=== PATIENT | male | born 1935 | race Caucasian/White ===

== ENCOUNTER 2016-05-01 12:19 | Outpatient (CLI) | payer OTHER, MEDICARE | END 2016-05-01 18:56 | disposition home or self-care (01) | LOC: SUS 12:19 | PROVIDERS: ATTEND General Practice | DX: I65.21 Occlusion and stenosis of right carotid artery (principal); R42 Dizziness and giddiness; R55 Syncope and collapse | CPT/HCPCS: 93880 ==

== ENCOUNTER 2016-10-20 14:12 | Emergency (ER) | payer OTHER, MEDICARE ==
[~2016-10-20] VITALS: Ht 172.7 cm; Wt 84.4 kg
[2016-10-20 14:15] VITALS: BP_SYST 116
[2016-10-20 16:32] VITALS: BP_SYST 120
== END 2016-10-20 16:31 | disposition home or self-care (01) ==
LOC: CANPREER → EDSTATUS 14:12 → SED 14:22
DX: M25.551 Pain in right hip (principal); Z88.1 Allergy status to other antibiotic agents; W01.190A Fall on same level from slipping, tripping and stumbling with subsequent striking against furniture, initial encounter; Y93.89 Activity, other specified; Y92.89 Other specified places as the place of occurrence of the external cause; Y99.8 Other external cause status
CPT/HCPCS: 73502; 99284

== ENCOUNTER 2017-04-23 13:07 | Outpatient (CLI) | payer OTHER, MEDICARE | END 2017-04-23 19:46 | disposition home or self-care (01) | LOC: SRD 13:07 | PROVIDERS: ATTEND General Practice | DX: R05 Cough (principal) | CPT/HCPCS: 71046-TC ==

== ENCOUNTER 2017-09-18 15:37 | Emergency (ER) | payer OTHER, MEDICARE ==
[~2017-09-18] VITALS: Ht 172.7 cm; Wt 80.7 kg
[2017-09-18 15:40] VITALS: BP_SYST 110
--- NOTE | 2017-09-18 15:40 | NUR ---
Patient to ER bed 6 to gown for evaluation. Side rails up. [facility]
--- NOTE | 2017-09-18 15:50 | NUR ---
Patient to ER via [facility] for evaluation of laceration to back of his head,s/p non-syncopal slip and fall on some water. Patient denies LOC, denies neck/back pain. Patient denies any pain at present. Patient is awake,alert and oriented in no acute distress, vital signs stable, respirations even and unlabored, skin warmand dry to touch. Awaiting evaluation by ER MD, will continue to observe and assess.
--- NOTE | 2017-09-18 16:00 | NUR ---
Lab at bedside to [facility] blood specimens.
--- NOTE | 2017-09-18 16:13 | NUR ---
Patient to radiology for x-ray/CT scan in stable condition.
--- NOTE | 2017-09-18 16:30 | NUR ---
Patient returned from radiology via [facility] in stable condition.
--- NOTE | 2017-09-18 16:35 | NUR ---
Dr Todd at bedside to evaluate patient.
[2017-09-18 16:36] LABS: ANION GAP 8 (5-15); CALCIUM 8.6 mg/dL (8.4-11.0); CHLORIDE 106 mmol/L (98-107); CREATININE 1.26 mg/dL (0.55-1.30); GLUCOSE 136 mg/dL (70-99); POTASSIUM 4.3 mmol/L (3.5-5.1); PROTHROMBIN TIME 10.1 SECS (9.5-12.5); SODIUM SERUM 140 mmol/L (136-145); UREA NITROGEN, BLOOD 33 mg/dL (8-21)
--- NOTE | 2017-09-18 16:40 | NUR ---
Wound care to wound to posterior scalp, wounds cleansed with hydrogen perioxide.
[2017-09-18 16:41] LABS: BASOPHILS % (AUTO) 0.3 % (0.0-2.0); EOSINOPHILS # (AUTO) 0.4 K/uL (0.0-0.4); EOSINOPHILS % (AUTO) 5.9 % (0.0-4.0); HEMATOCRIT 37.7 % (36-54); HEMOGLOBIN 12.9 g/dL (14.0-18.0); LYMPHOCYTES # (AUTO) 1.6 K/uL (1.0-5.5); LYMPHOCYTES % (AUTO) 22.9 % (20.5-51.5); MEAN CORPUSCULAR HEMOGLOBIN 33 pg (27-31); MEAN CORPUSCULAR HGB CONC 34 % (32-36); MEAN CORPUSCULAR VOLUME 95 fL (79.0-98.0); MONOCYTES # (AUTO) 0.6 K/uL (0.0-1.0); NEUTROPHILS # (AUTO) 4.3 K/uL (1.8-7.7); NEUTROPHILS % (AUTO) 62.9 % (40.0-70.0); PLATELET COUNT (AUTO) 288 K/uL (130-430); RED BLOOD CELL COUNT(AUTO) 3.96 MIL/uL (4.2-6.2); RED CELL DISTRIBUTION WIDTH 13.4 % (9.0-15.0); WHITE BLOOD COUNT (AUTO) 6.9 K/uL (4.8-10.8)
[2017-09-18 16:52] LABS: ALANINE AMINOTRANSFERASE 11 U/L (12-78); ALBUMIN 3.3 g/dL (3.4-4.8); ASPARTATE AMINOTRANSFERASE 19 U/L (10-37); FREE T4 (FREE THYROXINE) 0.8 ng/dL (0.6-1.6); TOTAL BILIRUBIN 0.6 mg/dL (0.0-1.0)
[2017-09-18 16:53] LABS: ALCOHOL, BLOOD < 3 mg/dL (<10)
--- NOTE | 2017-09-18 17:10 | NUR ---
Patient resting quietly in no acute distress, patient waiting for lab results and dispo.
[2017-09-18 17:20] VITALS: BP_SYST 120
--- NOTE | 2017-09-18 17:20 | NUR ---
Patient given written and verbal discharge instructions and verbalizes understanding. ER MD discussed with patient the results and treatment provided. Patient in stable condition. ID arm band removed. No RX given. Patient educated on pain management and to follow up with PMD. Pain Scale 0. Opportunity for questions provided and answered. Patient left ER in no acute distress via wheelchair, patient brought to private auto via wheelchair and assisted into car without incident. Family to dirve patient back to [facility].
== END 2017-09-18 17:20 | disposition home or self-care (01) ==
LOC: SED 15:37
DX: S09.90XA Unspecified injury of head, initial encounter (principal); G20 Parkinson's disease; Z88.1 Allergy status to other antibiotic agents; W01.0XXA Fall on same level from slipping, tripping and stumbling without subsequent striking against object, initial encounter; Y93.89 Activity, other specified; Y92.091 Bathroom in other non-institutional residence as the place of occurrence of the external cause; Y99.8 Other external cause status; R94.31 Abnormal electrocardiogram [ECG] [EKG]
CPT/HCPCS: 36415; 70450; 71045; 80053; 83605; 83880; 84439; 84484; 85025; 85610; 87040; 93005; 99285; G0482

== ENCOUNTER 2018-03-11 20:11 | Emergency (ER) | payer OTHER, MEDICARE ==
[~2018-03-11] VITALS: Ht 170.2 cm; Wt 80.3 kg
[2018-03-11 20:11] VITALS: BP_SYST 166
[2018-03-11] MEDS ORDERED: DIPH-TET-PERTUS Vaccine 0.5 ML VIAL (ADACEL) I.M. ONE (20:45)
[2018-03-11] MEDS ORDERED: CYAN100010 PO (20:54)
[2018-03-11] MEDS ORDERED: FINA5TAB3 PO (20:54)
[2018-03-11] MEDS ORDERED: PSYL660P17 PO (20:55)
[2018-03-11] MEDS ORDERED: TAMS0.4C96 PO (20:56)
[2018-03-11] MEDS ORDERED: COM200 PO (20:56)
[2018-03-11] MEDS ORDERED: DOCU-144 PO (20:57)
[2018-03-11] MEDS ORDERED: L.RH1CAP PO (21:00)
[2018-03-11] MEDS ORDERED: CARB1TAB21 PO (21:00)
[2018-03-11] MEDS ORDERED: ESCI20TA PO (21:01)
[2018-03-11] MEDS ORDERED: MIDO5TAB PO (21:02)
[2018-03-11] MEDS ORDERED: TRAM50TA2 PO (21:03)
[2018-03-11] MEDS ORDERED: MECL-110 PO (21:31)
[2018-03-11] MEDS ORDERED: CELE200C PO (21:35)
[2018-03-11] MEDS ORDERED: [UNRECOGNIZED DRUG - CODE] PO (21:42)
[2018-03-11] MEDS ORDERED: [UNRECOGNIZED DRUG - CODE] MC (21:42)
[2018-03-11] MEDS ORDERED: LYSI100013 PO (21:43)
[2018-03-11] MEDS ORDERED: ANTI1CAP2 PO (21:44)
[2018-03-11] MEDS ORDERED: CLINDAMYCIN HCL 150 MG CAPSULE PO ONE (22:00)
[2018-03-11 22:16] VITALS: BP_SYST 148
== END 2018-03-11 22:16 | disposition home or self-care (01) ==
LOC: SED 20:11
DX: S01.81XA Laceration without foreign body of other part of head, initial encounter (principal); R03.0 Elevated blood-pressure reading, without diagnosis of hypertension; G20 Parkinson's disease; Z88.1 Allergy status to other antibiotic agents; Z88.2 Allergy status to sulfonamides; Z79.899 Other long term (current) drug therapy; W22.8XXA Striking against or struck by other objects, initial encounter; Y93.89 Activity, other specified; Y92.89 Other specified places as the place of occurrence of the external cause; Y99.8 Other external cause status
CPT/HCPCS: 70450-TC; 70486-TC; 72125-TC; 90715; 93005; 99284

== ENCOUNTER 2018-07-11 12:57 | Emergency (ER) | payer OTHER, MEDICARE ==
[~2018-07-11] VITALS: Ht 172.7 cm; Wt 77.1 kg
[~2018-07-11 12:57] MED LIST: ANTI1CAP2 PO; CARB1TAB21 PO; CELE200C PO; COM200 PO; CYAN100010 PO; DOCU-144 PO; ESCI20TA PO; FINA5TAB3 PO; L.RH1CAP PO; LYSI100013 PO; MECL-110 PO; MIDO5TAB PO; PSYL660P17 PO; TAMS0.4C96 PO; TRAM50TA2 PO; [UNRECOGNIZED DRUG - CODE] PO
[2018-07-11 13:16] VITALS: BP_SYST 107
[2018-07-11 15:31] VITALS: BP_SYST 140
== END 2018-07-11 15:31 | disposition home or self-care (01) ==
LOC: SED 12:57
DX: S00.83XA Contusion of other part of head, initial encounter (principal); G20 Parkinson's disease; Z79.899 Other long term (current) drug therapy; Z88.1 Allergy status to other antibiotic agents; Z88.2 Allergy status to sulfonamides; W01.0XXA Fall on same level from slipping, tripping and stumbling without subsequent striking against object, initial encounter; Y93.89 Activity, other specified; Y92.89 Other specified places as the place of occurrence of the external cause; Y99.8 Other external cause status
CPT/HCPCS: 70450-TC; 99284

== ENCOUNTER 2018-07-20 15:24 | Inpatient (IN) | payer OTHER, MEDICARE ==
[~2018-07-20] VITALS: Ht 180.3 cm; Wt 73.9 kg
--- NOTE | 2018-07-20 15:30 | NUR ---
Cidny caldera in [facility] - 07/20/18 at 1618 by [email or web address] Placed in room 07 . Placed on amusement machine mechanic, blood pressure machine and pulse oximeter. To gown for exam. Side rails up.
[2018-07-20 15:40] VITALS: BP_SYST 111
[2018-07-20] MEDS ORDERED: ALBUTEROL SULFATE 0.083% 2.5 MG/3 ML VIAL.NEB INH ONE ×3 (16:00→17:45)
[2018-07-20] MEDS ORDERED: LEVOFLOXACIN 500 MG/D5W 100 ML IV ONE (16:00)
--- NOTE | 2018-07-20 16:05 | NUR ---
Patient to ER via triage from [facility] for evaluation of SOB, patient denies pain at present. Patient is awake and alert. Patient placed on youth nutritional monitor, low oxygen saturation. Patient placed on oxygen. IV started with #18 to right AC, bloods drawn and sent to lab. EKG being done. Awaiting evaluation by ER MD, will continue to observe and assess.
--- NOTE | 2018-07-20 16:05 | NUR ---
Placed in room 07 . Placed on souvenir street vendor, blood pressure machine and pulse oximeter. To gown for exam. Side rails up.
--- NOTE | 2018-07-20 16:10 | NUR ---
ER at bedside examining patient.
[2018-07-20 16:27] LABS: BASOPHILS % (AUTO) 0.3 % (0.0-2.0); EOSINOPHILS # (AUTO) 0.4 K/uL (0.0-0.4); HEMATOCRIT 34.8 % (36-54); HEMOGLOBIN 11.6 g/dL (14.0-18.0); LYMPHOCYTES # (AUTO) 0.7 K/uL (1.0-5.5); LYMPHOCYTES % (AUTO) 7.5 % (20.5-51.5); MEAN CORPUSCULAR HEMOGLOBIN 32 pg (27-31); MEAN CORPUSCULAR HGB CONC 33 % (32-36); MEAN CORPUSCULAR VOLUME 96 fL (79.0-98.0); MONOCYTES # (AUTO) 0.6 K/uL (0.0-1.0); MONOCYTES % (AUTO) 5.8 % (1.7-9.3); NEUTROPHILS # (AUTO) 7.8 K/uL (1.8-7.7); NEUTROPHILS % (AUTO) 82.4 % (40.0-70.0); PLATELET COUNT (AUTO) 292 K/uL (130-430); RED BLOOD CELL COUNT(AUTO) 3.63 MIL/uL (4.2-6.2); RED CELL DISTRIBUTION WIDTH 15.2 % (9.0-15.0); WHITE BLOOD COUNT (AUTO) 9.5 K/uL (4.8-10.8)
--- NOTE | 2018-07-20 17:00 | NUR ---
Patient resting quietly in no acute distress.
[2018-07-20 17:02] LABS: ANION GAP 8 (5-15); CALCIUM 8.5 mg/dL (8.4-11.0); CHLORIDE 102 mmol/L (98-107); CREATININE 1.06 mg/dL (0.55-1.30); GLUCOSE 104 mg/dL (70-99); POTASSIUM 4.6 mmol/L (3.5-5.1); SODIUM SERUM 136 mmol/L (136-145); UREA NITROGEN, BLOOD 37 mg/dL (8-21)
[2018-07-20 17:07] LABS: ALANINE AMINOTRANSFERASE 13 U/L (12-78); ALBUMIN 3.4 g/dL (3.4-4.8); ASPARTATE AMINOTRANSFERASE 24 U/L (10-37); TOTAL BILIRUBIN 0.7 mg/dL (0.0-1.0)
[2018-07-20 17:18] LABS: PROTHROMBIN TIME 10.1 SECS (9.5-12.5)
[2018-07-20] MEDS ORDERED: CAT.1 PO (17:21)
[2018-07-20] MEDS ORDERED: CARB-62 PO (17:21)
[2018-07-20] MEDS ORDERED: LOT1%CR30 TP (17:21)
[2018-07-20] MEDS ORDERED: [UNRECOGNIZED DRUG - CODE] IJ (17:21)
[2018-07-20] MEDS ORDERED: MOMETASONE TP (17:21)
--- NOTE | 2018-07-20 17:21 | NUR ---
Medication reconciliation completed with information provided by [facility]. Any prior medication reconciliation on file was reviewed and corrected.
--- NOTE | 2018-07-20 17:35 | NUR ---
Patient with increased respiratory difficulty and audible wheezing noted. Dr Todd at bedside to re-evaluate patient. Orders for additional breathing treatments, Solu-Medrol, and magnesium given and implemented.
[2018-07-20] MEDS ORDERED: methylPREDNISolone SOD SUCC/PF 62.5 MG/ML VIAL IVP ONE (17:45)
[2018-07-20] MEDS ORDERED: MAGNESIUM SULFATE IN WATER 100 ML IV ONE (17:45)
[2018-07-20] MEDS ORDERED: KETOROLAC TROMETHAMINE 30 MG VIAL IVP ONE (17:45)
--- NOTE | 2018-07-20 17:45 | NUR ---
Per caregiver, patient is a DNR. Dr Todd is aware. Patient placed on NRB mask.
[2018-07-20] MEDS ORDERED: MAGNESIUM SULFATE 100 ML IV ONE (17:50)
[2018-07-20] MEDS ORDERED: ONDANSETRON HCL 4 MG/2 ML VIAL IVP PRN (18:30)
--- NOTE | 2018-07-20 18:30 | NUR ---
Transfer to tele room 105-A via ACLS protocol. Licensed nurse present. IV present no signs or symptoms of infiltration.
--- NOTE | 2018-07-20 18:30 | NUR ---
Patient will be admitted to care of DR Figueroa. Admitted to tele unit. Will go to room 105-A. Belongings list completed. Summary report printed. Report will be given at bedside.
--- NOTE | 2018-07-20 18:50 | NUR ---
ADMISSION NOTE PATIENT CAME FROM ER, DIAGNOSIS OF COPD EXAC, ON 100% NRB, PT IS DNR, CONFUSED, RESTLESS.
[2018-07-20] MEDS ORDERED: cloNIDine HCL 0.1 MG TABLET PO PRN (19:15)
--- NOTE | 2018-07-20 19:32 | NUR ---
CALL LAURA WINTER a[facility] [phone].INFORM THAT PT IS ON RESTRAIN.
[2018-07-20 20:17] VITALS: BP_SYST 123
--- NOTE | 2018-07-20 20:30 | NUR ---
INITIAL NOTE / BEHAVIOR AT INITIAL ASSESSMENT, PATIENT IS RESTLESS, HIS OXYGEN SATURATION LEVEL IS WNL WITH NON-REBREATHER MASK PLACED AT 15L- WILL START TITRATING DOWN OXYGEN TOLERATED. PATIENT VERBALIZES NO PAIN. PLAN OF CARE FOR THE EVENING IS COMMUNICATED WITH THE PATIENT. BED IS LOCKED, ALARMED, AND AT THE LOWEST LEVEL. FALL, SAFETY, AND RESTRAINT PRECAUTIONS WILL BE IN PLACE THROUGHOUT THE SHIFT. PATIENT IS COMBATIVE, HE IS TRYING TO KICK, PUNCH AND "HEADBUTT" STAFF MD WILL BE PAGED FOR ORDER REQUESTS.
--- NOTE | 2018-07-20 20:30 | NUR ---
CONSULTATION PAGED/CALLED Reason for Consultation: COPD Person Who was Notified: ABDULLAHI Consulting Physician: DYLAN Manager Creative Services Specialty: PULMO Ordering Physician: ARTURO
--- NOTE | 2018-07-20 20:36 | NUR ---
PAGED PAGING THE GRAPHIC COORDINATOR PHYSICIAN, DR. KODAK MORRIS REGARDING ORDERS, SPOKE WITH
[2018-07-20] MEDS: COMTAN 200 MG TAB PO SCH (21:00)
[2018-07-20] MEDS ORDERED: CLOTRIMAZOLE 1% TOPICAL CREAM 15 GM TP SCH (21:00)
--- NOTE | 2018-07-20 21:15 | NUR ---
COMMUNICATION W/ DR. ARTURO MORRIS HAS PAGED BACK AT THIS TIME, PATIENTS BEHAVIOR WAS COMMUNICATED. PATIENT'S GENERALIZED SKIN RASH ALSO COMMUNICATED. NEW ORDERS RECEIVED. ORDERS ARE READ BACK, VERIFIED, AND ENTERED.
[2018-07-20] MEDS: methylPREDNISolone SOD SUCC 40 MG/ML VIAL IVP SCH (21:29)
[2018-07-20] MEDS: DOCUSATE SODIUM 100 MG CAPSULE PO SCH (21:29)
[2018-07-20] MEDS: ACETAMINOPHEN 325 MG TABLET PO PRN (21:29)
[2018-07-20] MEDS: MIDODRINE HCL 5 MG TABLET (PROAMATINE) PO SCH (21:29)
[2018-07-20] MEDS ORDERED: DIPHENHYDRAMINE INJ 50 MG/ML VIAL IVP ONE (22:15)
--- NOTE | 2018-07-20 22:55 | NUR ---
NOTE PATIENT IS SLEEPING, STABLE, NO SIGNS OF RESPIRATORY DISTRESS. HIS OXYGEN SATURATION IS STABLE WITH SIMPLE MASK AT 4L BED IS LOCKED, ALARMED, AND THE LOWEST LEVEL.
--- NOTE | 2018-07-20 23:15 | NUR ---
NOTE PATIENT IS SLEEPING, STABLE, NO SIGNS OF RESPIRATORY DISTRESS. BED IS LOCKED, ALARMED, AND THE LOWEST LEVEL.
--- NOTE | 2018-07-21 01:15 | NUR ---
NOTE PATIENT IS SLEEPING, STABLE, NO SIGNS OF RESPIRATORY DISTRESS. BED IS LOCKED, ALARMED, AND THE LOWEST LEVEL.
--- NOTE | 2018-07-21 03:15 | NUR ---
NOTE PATIENT IS SLEEPING, STABLE, NO SIGNS OF RESPIRATORY DISTRESS. BED IS LOCKED, ALARMED, AND THE LOWEST LEVEL.
--- NOTE | 2018-07-21 05:00 | NUR ---
NOTE PATIENT IS SLEEPING, STABLE, NO SIGNS OF RESPIRATORY DISTRESS. BED IS LOCKED, ALARMED, AND THE LOWEST LEVEL.
--- NOTE | 2018-07-21 06:49 | NUR ---
Nutrition Update Adeel Scale 14 noted. Pt admitted for COPD exacerbation Diet: 2gm Na BMI: 23.7 kg/m2 RD to follow per nutrition care standards.
--- NOTE | 2018-07-21 06:55 | NUR ---
CLOSING NOTE PATIENT IS SLEEPING, STABLE, NO SIGNS OF RESPIRATORY DISTRESS. PATIENT SLEPT WELL THROUGHOUT THE SHIFT. BED IS LOCKED, ALARMED, AND THE LOWEST LEVEL. FALL, SAFETY, AND RESTRAINT PRECAUTIONS HAVE BEEN TAKEN THROUGHOUT THE SHIFT. WILL CONTINUE TO MONITOR UNTIL SHIFT REPORT IS GIVEN AT BEDSIDE TO AM NURSE.
[2018-07-21 07:58] VITALS: BP_SYST 125
--- NOTE | 2018-07-21 08:00 | NUR ---
OPENING NOTES, SEEN PT IN BED, PT IS LETHARGIC, AROUSABLE TO TOUCH. TACHYEPNEIC, NO SOB, NO S/S OF RESP DISTRESS. CRACKLES NOTED ON BILAT LUNGS. ON O2 6LI PER SIMPLE MASK WITH O2 SAT OF 995, REDUCED O2 TO 1 LI PER MASK. WILL CHECK O2 SAT. SAFETY PRECAUTION IN PLACE. CALL LIGHT IN REACH. BED IN LOW POSITION. BED ALARM ON. WILL CONT TO MONITOR.
--- NOTE | 2018-07-21 08:20 | NUR ---
pt's spouse at bedside, updated with pt's condition. spouse confirmed that pt has 2x brain stimulator on the l/r chest also said that rashes is from blood infected per pt's doctor.
[2018-07-21] MEDS: ACETAMINOPHEN 325 MG TABLET PO PRN ×2 (08:58→22:21)
[2018-07-21] MEDS: CARBIDOPA/LEVODOPA 25/250 MG TABLET PO SCH ×5 (08:58→22:01)
[2018-07-21] MEDS: COMTAN 200 MG TAB PO SCH ×4 (08:59→21:00)
[2018-07-21] MEDS: DOCUSATE SODIUM 100 MG CAPSULE PO SCH ×2 (08:59→21:59)
[2018-07-21] MEDS: FINASTERIDE 5 MG TABLET (PROSCAR) PO SCH (09:00)
[2018-07-21] MEDS: CYANOCOBALAMIN 1000 mCg TABLET PO SCH (09:00)
[2018-07-21] MEDS ORDERED: methylPREDNISolone SOD SUCC 40 MG/ML VIAL IVP SCH (09:00)
[2018-07-21] MEDS: MIDODRINE HCL 5 MG TABLET (PROAMATINE) PO SCH ×3 (09:00→22:00)
[2018-07-21] MEDS: ENOXAPARIN SODIUM 40 MG/0.4 ML SYRINGE SUBCUT SCH (09:00)
[2018-07-21] MEDS: methylPREDNISolone SOD SUCC 40 MG/ML VIAL IVP SCH ×2 (09:02→21:59)
[2018-07-21] MEDS: HYDROCORTISONE 1%, 28.35 GM TOPICAL CREAM TP SCH ×2 (09:02→22:04)
--- NOTE | 2018-07-21 10:40 | NUR ---
PT IN BED, PT CONTINUED TO BE ON RESTRAINT, NO SOB, TACHYPNEIC, O2 SAT ON RA IS 94%. SAFETY PRECAUTION IN PLACE. BED ALARM ON . WILL CONT TO MONITOR.
[2018-07-21 11:32] VITALS: BP_SYST 124
[2018-07-21 16:03] VITALS: BP_SYST 122
--- NOTE | 2018-07-21 18:20 | NUR ---
CLOSING NOTES, PT HAS BEEN STABLE, NO FEVER. TURNED AND REPOSITIONED Q2H, PT KEPT ON RESTRAINT, EVEN THOUGH PT IS QUIET AND COOPERATIVE, CHECKING FOR SUNDOWNER'S SYNDROME. PT HAS BEEN AFEBRILE. ALL MEDS OFFERED AND TAKEN. WILL ENDORSE TO NIGHT RN.
[2018-07-21] MEDS: cefTRIAXone 1 GM in D5W 50 ML IV SCH (19:00)
[2018-07-21 19:49] VITALS: BP_SYST 119
--- NOTE | 2018-07-21 19:49 | NUR ---
INITIAL NOTE AT INITIAL ASSESSMENT, PATIENT IS RESTING IN BED, STABLE, NO SIGNS OF RESPIRATORY DISTRESS. PATIENT VERBALIZES NO PAIN. PLAN OF CARE FOR THE EVENING IS COMMUNICATED WITH THE PATIENT. BED IS LOCKED, ALARMED, AND AT THE LOWEST LEVEL. FALL, SAFETY, AND RESTRAINT PRECAUTIONS WILL BE IN PLACE THROUGHOUT THE SHIFT.
[2018-07-21] MEDS: AZITHROMYCIN 500 MG in NS 250 ML IV SCH (20:00)
[2018-07-21] MEDS ORDERED: AZITHROMYCIN 500 MG/VIAL (ZITHROMAX) IV ONE (21:02)
[2018-07-21] MEDS ORDERED: cefTRIAXone 1 GM IVPB PREMIX 50 ML IV ONE (21:02)
--- NOTE | 2018-07-21 21:48 | NUR ---
NOTE PATIENT TOLERATED SCHEDULED PO MEDS WELL. PATIENT IS RESTING IN BED, STABLE, NO SIGNS OF RESPIRATORY DISTRESS. CALL LIGHT IS WITHIN REACH. BED IS LOCKED, ALARMED, AND AT THE LOWEST LEVEL.
--- NOTE | 2018-07-21 23:00 | NUR ---
RESTRAINT D/C BILATERAL WRIST RESTRAINTS ARE D/C AT THIS TIME. PATIENT HAS BEEN QUIET AND CALM EVEN DURING RESTRAINT RELEASE TIMES. WILL MONITOR CLOSELY FOR PATIENT SAFETY. ROUNDS WILL BE PERFORMED AT LEAST Q30 MINUTES THROUGHOUT THE REST OF THE SHIFT TO MONITOR FOR BEHAVIORAL CHANGES. PATIENT'S BED IS LOCKED, ALARMED, AND AT THE LOWEST LEVEL. PATIENT ROOM IS CLOSE TO NURSING STATION FOR CLOSE OBSERVATION. AT THIS TIME HE IS STABLE, NO SIGNS OF RESPIRATORY DISTRESS.
[2018-07-21 23:42] VITALS: BP_SYST 113
--- NOTE | 2018-07-21 23:44 | NUR ---
HYGIENE NOTE PATIENT IS PROVIDED HYGIENE CARE AT THIS TIME, PATIENT PROVIDED FRESH LINENS AND REPOSITIONED FOR COMFORT. HE IS STABLE, NO SIGNS OF RESPIRATORY DISTRESS. CALL LIGHT IS WITHIN REACH. BED IS LOCKED, ALARMED, AND AT THE LOWEST LEVEL.
--- NOTE | 2018-07-22 01:40 | NUR ---
NOTE PATIENT IS SLEEPING, STABLE, NO SIGNS OF RESPIRATORY DISTRESS. BED IS LOCKED, ALARMED, AND AT THE LOWEST LEVEL.
--- NOTE | 2018-07-22 03:30 | NUR ---
NOTE PATIENT IS SLEEPING, STABLE, NO SIGNS OF RESPIRATORY DISTRESS. BED IS LOCKED, ALARMED, AND AT THE LOWEST LEVEL.
[2018-07-22] MEDS: CARBIDOPA/LEVODOPA 25/250 MG TABLET PO SCH ×5 (04:58→22:19)
--- NOTE | 2018-07-22 05:01 | NUR ---
HYGIENE NOTE PATIENT IS PROVIDED HYGIENE CARE AT THIS TIME, PATIENT PROVIDED FRESH LINENS AND REPOSITIONED FOR COMFORT. HE IS STABLE, NO SIGNS OF RESPIRATORY DISTRESS. BED IS LOCKED, ALARMED, AND AT THE LOWEST LEVEL.
--- NOTE | 2018-07-22 06:17 | NUR ---
CLOSING NOTE PATIENT REMAINED CALM AND QUIET THROUGHOUT THE SHIFT. RESTRAINTS REMAINED D/C, PATIENT SHOWED NO BEHAVIOR CHANGES THAT REQUIRED RESTRAINTS TO BE PLACED BACK ON. AT THIS TIME, PATIENT IS SLEEPING, STABLE, NO SIGNS OF RESPIRATORY DISTRESS. PATIENT SLEPT WELL THROUGHOUT THE SHIFT. BED IS LOCKED, ALARMED, AND THE LOWEST LEVEL. FALL, SAFETY, AND RESTRAINT PRECAUTIONS HAVE BEEN TAKEN THROUGHOUT THE SHIFT. WILL CONTINUE TO MONITOR UNTIL SHIFT REPORT IS GIVEN AT BEDSIDE TO AM NURSE.
[2018-07-22 07:04] LABS: HEMOGLOBIN 10.1 g/dL (14.0-18.0); LYMPHOCYTES # (AUTO) 0.7 K/uL (1.0-5.5); MEAN CORPUSCULAR HEMOGLOBIN 31 pg (27-31); MEAN CORPUSCULAR HGB CONC 33 % (32-36); MEAN CORPUSCULAR VOLUME 96 fL (79.0-98.0); MONOCYTES # (AUTO) 0.4 K/uL (0.0-1.0); MONOCYTES % (AUTO) 3.2 % (1.7-9.3); NEUTROPHILS # (AUTO) 11.3 K/uL (1.8-7.7); NEUTROPHILS % (AUTO) 90.8 % (40.0-70.0); PLATELET COUNT (AUTO) 238 K/uL (130-430); RED BLOOD CELL COUNT(AUTO) 3.24 MIL/uL (4.2-6.2); RED CELL DISTRIBUTION WIDTH 15.4 % (9.0-15.0); WHITE BLOOD COUNT (AUTO) 12.5 K/uL (4.8-10.8)
[2018-07-22 07:23] LABS: ANION GAP 8 (5-15); CALCIUM 8.2 mg/dL (8.4-11.0); CHLORIDE 105 mmol/L (98-107); CREATININE 1.14 mg/dL (0.55-1.30); GLUCOSE 124 mg/dL (70-99); POTASSIUM 5.3 mmol/L (3.5-5.1); SODIUM SERUM 140 mmol/L (136-145); UREA NITROGEN, BLOOD 49 mg/dL (8-21)
[2018-07-22 07:33] LABS: ALANINE AMINOTRANSFERASE 20 U/L (12-78); ALBUMIN 2.6 g/dL (3.4-4.8); ASPARTATE AMINOTRANSFERASE 43 U/L (10-37); TOTAL BILIRUBIN 0.5 mg/dL (0.0-1.0)
--- NOTE | 2018-07-22 08:00 | NUR ---
initial notes rec patient awake with periods of confusion. ivl in placed. no infiltration noted. resp easy and unlabored. no sob noted. bed to the lowest position and side rails up and locked. call light within reached and knows when to call. denies pain and bed alarm is activated.
[2018-07-22] MEDS ORDERED: SODIUM POLYSTYRENE SULFONATE 15 GM/60 ML UDBTL PO ONE (09:15)
--- NOTE | 2018-07-22 10:00 | NUR ---
rounds due meds were given as ordered. no sob noted. sleeps at intervals.
[2018-07-22] MEDS: MIDODRINE HCL 5 MG TABLET (PROAMATINE) PO SCH ×3 (10:14→20:17)
[2018-07-22] MEDS: FINASTERIDE 5 MG TABLET (PROSCAR) PO SCH (10:14)
[2018-07-22] MEDS: methylPREDNISolone SOD SUCC 40 MG/ML VIAL IVP SCH ×2 (10:14→20:19)
[2018-07-22] MEDS: CYANOCOBALAMIN 1000 mCg TABLET PO SCH (10:14)
[2018-07-22] MEDS: DOCUSATE SODIUM 100 MG CAPSULE PO SCH ×2 (10:14→20:18)
[2018-07-22] MEDS: ENOXAPARIN SODIUM 40 MG/0.4 ML SYRINGE SUBCUT SCH (10:16)
[2018-07-22] MEDS: HYDROCORTISONE 1%, 28.35 GM TOPICAL CREAM TP SCH ×2 (10:21→20:19)
[2018-07-22] MEDS: COMTAN 200 MG TAB PO SCH ×4 (10:58→20:19)
[2018-07-22 11:31] VITALS: BP_SYST 114
--- NOTE | 2018-07-22 12:00 | NUR ---
rounds seem by dr benjamin. call light within reached. no sob noted.
--- NOTE | 2018-07-22 14:00 | NUR ---
rounds pt with large amount of anibal . was up at the bedside and complete bed change done. no sob noted.
[2018-07-22 15:29] VITALS: BP_SYST 139
[2018-07-22] MEDS: ALBUTEROL SULFATE 0.083% 2.5 MG/3 ML VIAL.NEB INH PRN (18:29)
[2018-07-22] MEDS: LORazepam 2 MG/ML VIAL IVP PRN (18:46)
--- NOTE | 2018-07-22 19:00 | NUR ---
closing notes pt was confused and trying to get oob/ ivl was inserted in the r forearm and gave ativan.will endorsed to night nurse re patient. spoke with patient and stated okay to pur a restraint if needed. no sob noted.
--- NOTE | 2018-07-22 19:15 | NUR ---
OPENING NOTE RECEIVED ENDORSEMENT REPORT FROM DAY NURSE BRAYDEN AT BEDSIDE. PT IS AOX2. NO SOB NOTED. NO DISTRESS NOTED. CHEST RISE EVEN AND UNLABORED. NO S/S OF PAIN NOTED. PT DENIES PAIN AT THIS TIME. IV CLEAN, DRY, PATENT AND INTACT. ORIENTED PT TO HOSPITAL ROOM AND HOW TO USE ROOM PHONE AND CALL LIGHT TO CALL FOR ASSISTANCE. PT VERBALIZED UNDERSTANDING. SAFETY MEASURES IN PLACE. CALL LIGHT/ROOM PHONE WITHIN REACH, BED ALARM ON, BED WHEELS LOCKED, BED IN LOWEST POSITION, BED WHEELS LOCKED, SIDE RAILS UP X3, BEDSIDE TABLE WITHIN REACH. NO OTHER NEEDS AT THIS TIME. WILL CONTINUE TO MONITOR PT AND CONTINUE PT'S POC.
[2018-07-22 20:00] VITALS: BP_SYST 115
[2018-07-22] MEDS ORDERED: cefTRIAXone 1 GM IVPB PREMIX 50 ML IV ONE (20:01)
[2018-07-22] MEDS ORDERED: AZITHROMYCIN 500 MG/VIAL (ZITHROMAX) IV ONE (20:01)
[2018-07-22] MEDS: cefTRIAXone 1 GM in D5W 50 ML IV SCH (20:17)
[2018-07-22] MEDS: AZITHROMYCIN 500 MG in NS 250 ML IV SCH (20:17)
--- NOTE | 2018-07-22 20:45 | NUR ---
RESTRAINTS: Physician order given to place bilateral soft wrist restraints on patient to prevent harm to self and harm to others. All other measures attempted prior to intiation of restraints without success. Per patients family, requested use of restraints to keep patient safe from harm to self. Resraints placed with quick-release ties to bed frame. Will monitor patient frequently.
--- NOTE | 2018-07-22 20:50 | NUR ---
RN ROUNDS PT RESTING IN BED. NO SOB NOTED. NO DISTRESS NOTED. CHEST RISE EVEN AND UNLABORED. NO S/S OF PAIN NOTED. PT DENIES PAIN AT THIS TIME. NO OTHER NEEDS AT THIS TIME. SAFETY MEASURES IN PLACE. WILL CONTINUE TO MONITOR PT AND CONTINUE PT'S POC.
[2018-07-22] MEDS ORDERED: DIPHENHYDRAMINE INJ 50 MG/ML VIAL IVP SCH (21:30)
[2018-07-22] MEDS ORDERED: LORazepam 2 MG/ML VIAL IVP SCH (21:30)
--- NOTE | 2018-07-23 00:20 | NUR ---
RN ROUNDS PT RESTING IN BED WITH EYES CLOSED. NO SOB NOTED. NO DISTRESS NOTED. CHEST RISE EVEN AND UNLABORED. NO S/S OF PAIN NOTED. NO OTHER NEEDS AT THIS TIME. SAFETY MEASURES IN PLACE. WILL CONTINUE TO MONITOR PT AND CONTINUE PT'S POC.
[2018-07-23 00:46] VITALS: BP_SYST 146
--- NOTE | 2018-07-23 01:43 | NUR ---
RT AT BEDSIDE
[2018-07-23] MEDS: ALBUTEROL SULFATE 0.083% 2.5 MG/3 ML VIAL.NEB INH PRN ×2 (01:44→07:27)
--- NOTE | 2018-07-23 02:30 | NUR ---
RN ROUNDS PT RESTING IN BED WITH EYES CLOSED. NO SOB NOTED. NO DISTRESS NOTED. CHEST RISE EVEN AND UNLABORED. NO S/S OF PAIN NOTED. PT DENIES PAIN AT THIS TIME. NO OTHER NEEDS AT THIS TIME. SAFETY MEASURES IN PLACE. WILL CONTINUE TO MONITOR PT AND CONTINUE PT'S POC.
[2018-07-23] MEDS: CARBIDOPA/LEVODOPA 25/250 MG TABLET PO SCH ×5 (05:14→21:34)
--- NOTE | 2018-07-23 05:30 | NUR ---
RN ROUNDS PT RESTING IN BED. NO SOB NOTED. NO DISTRESS NOTED. CHEST RISE EVEN AND UNLABORED. NO S/S OF PAIN NOTED. PT DENIES PAIN AT THIS TIME. VITAL SIGNS WNL. SAFETY MEASURES IN PLACE. NO OTHER NEEDS AT THIS TIME. WILL CONTINUE TO MONITOR PT AND CONTINUE PT'S POC.
--- NOTE | 2018-07-23 06:38 | NUR ---
CLOSING NOTE PT RESTING IN BED WITH EYES CLOSED. NO SOB NOTED. NO DISTRESS NOTED. CHEST RISE EVEN AND UNLABORED. NO S/S OF PAIN NOTED. PT DENIES PAIN AT THIS TIME. IV CLEAN, DRY, PATENT AND INTACT. NO COMPLAINTS OF PAIN THROUGHOUT SHIFT. ALL NEEDS MET THROUGHOUT SHIFT. ALL SCHEDULED MEDICATIONS ADMINISTERED ORDERED. SAFETY MEASURES IN PLACE THROUGHOUT SHIFT. NO OTHER NEEDS AT THIS TIME. WILL ENDORSE PT REPORT TO DAY NURSE.
--- NOTE | 2018-07-23 07:10 | NUR ---
received report from herbert nurse at the bedside. patient asleep both eyes closed. vitals signs stable and documented. patient awake x 1. knows his name. but confused. lungs bilaterally diminished at the bases. abdomen soft and non distended. generalized scattered rashes noted. has iv access on the left forearm #22. dry/patent saline lock. bed in low position. call lights within reach. safety precaution monitored. has bilateral soft wrist restraints noted.
[2018-07-23 07:18] LABS: ANION GAP 11 (5-15); CALCIUM 8.5 mg/dL (8.4-11.0); CHLORIDE 105 mmol/L (98-107); CREATININE 1.06 mg/dL (0.55-1.30); GLUCOSE 168 mg/dL (70-99); POTASSIUM 4.6 mmol/L (3.5-5.1); SODIUM SERUM 142 mmol/L (136-145); UREA NITROGEN, BLOOD 44 mg/dL (8-21)
[2018-07-23 07:39] LABS: ALANINE AMINOTRANSFERASE 19 U/L (12-78); ALBUMIN 2.7 g/dL (3.4-4.8); ASPARTATE AMINOTRANSFERASE 37 U/L (10-37); TOTAL BILIRUBIN 0.5 mg/dL (0.0-1.0)
[2018-07-23 08:00] VITALS: BP_SYST 157
--- NOTE | 2018-07-23 08:00 | NUR ---
turn to sides. with pillows back.
--- NOTE | 2018-07-23 08:10 | NUR ---
turn to sides. patient is incontinent of urine and stool. jonathan care done.
[2018-07-23] MEDS: ENOXAPARIN SODIUM 40 MG/0.4 ML SYRINGE SUBCUT SCH (09:00)
--- NOTE | 2018-07-23 09:00 | NUR ---
all medication po given but spit it out. refused to take the medicine with apple sauce.
--- NOTE | 2018-07-23 09:42 | NUR ---
solumedrol iv given rt forearm saline lock. at 0949 ativan 0.5 mg iv given flush with normal saline.
[2018-07-23] MEDS: methylPREDNISolone SOD SUCC 40 MG/ML VIAL IVP SCH (09:49)
[2018-07-23] MEDS: LORazepam 2 MG/ML VIAL IVP PRN (09:52)
[2018-07-23] MEDS: MIDODRINE HCL 5 MG TABLET (PROAMATINE) PO SCH ×3 (09:53→21:34)
[2018-07-23] MEDS: DOCUSATE SODIUM 100 MG CAPSULE PO SCH ×2 (09:53→21:34)
[2018-07-23] MEDS: CYANOCOBALAMIN 1000 mCg TABLET PO SCH (09:53)
[2018-07-23] MEDS: COMTAN 200 MG TAB PO SCH ×4 (09:53→21:34)
[2018-07-23] MEDS: FINASTERIDE 5 MG TABLET (PROSCAR) PO SCH (09:53)
[2018-07-23] MEDS: HYDROCORTISONE 1%, 28.35 GM TOPICAL CREAM TP SCH ×2 (09:54→21:35)
--- NOTE | 2018-07-23 09:58 | NUR ---
patient kicking and hitting. awake x 1. has bilateral wrist restraint in placed. patient has oxygen 2 lnc. lungs bilaterally slight crackles noted. diminished at the bases. bed in low position and call lights within reach. refused to take the medication. hourly rounding needed.
[2018-07-23] MEDS ORDERED: HALOPERIDOL LACTATE 5 MG/ML VIAL IVP PRN (10:00)
--- NOTE | 2018-07-23 10:00 | NUR ---
repositioned to sides. with pillows on the back
--- NOTE | 2018-07-23 10:42 | NUR ---
DC PLANNING: CM SPOKE WITH PATIENT'S POA ( MOY REYES) @ REGARDING DC PLANNING TO SNF. PER POA, SHE LIVES IN [place] AND WOULD PREFER SNF AROUND [place]. SHE WAS OPEN TO [facility] AND [facility]. POA WOULD ALSO WANT TO BE INFORMED OF THE ACCEPTING SNF AND WOULD WANT TO CHECK SNF BEFORE DISCHARGE. CM/DP TO NOTIFY POA OF ACCEPTING SNF.
--- NOTE | 2018-07-23 11:25 | NUR ---
ortiz catheter #16 placed with difficulty patient kicking and hitting. and draining clear yellow urine. as per doctor order.
[2018-07-23 11:36] VITALS: BP_SYST 153
--- NOTE | 2018-07-23 11:50 | NUR ---
Discharge Planning: DCP faxed pt referral to [facility] (f [phone] p [phone]), [facility] (f [phone] p [phone]), [facility] (f [phone] ) DCP to follow up. Addendum: 07/23/18 at 1405 by Melissa Guerrero DP DCP received message from [facility] ( [phone] ), [facility] wanted to know if there was any behavior problems with patient. DCP transfered call to . Addendum: 07/23/18 at 1618 by Melissa Guerrero DP [facility] (f [phone] p [phone]) Gu[facility] stated to CM willing to take patient. [facility] (f [phone] p [phone]) DCP called to follow up intake no answer DCP left message.
--- NOTE | 2018-07-23 13:00 | NUR ---
refused the medication
--- NOTE | 2018-07-23 15:00 | NUR ---
refused the medication.
[2018-07-23 15:40] VITALS: BP_SYST 150
--- NOTE | 2018-07-23 16:00 | NUR ---
placed a new oxi sensor on the finger but keeps taking it out.
--- NOTE | 2018-07-23 16:30 | NUR ---
starts to kick again needs to be clean and perineal care done.
--- NOTE | 2018-07-23 17:00 | NUR ---
patient spits out the medication. patient refused.
--- NOTE | 2018-07-23 17:46 | NUR ---
placed a new iv access on the rt hand #22. saline lock. dry/patent.
--- NOTE | 2018-07-23 18:37 | NUR ---
patient placed oxi sensor, but he still trying to take it out. repositioned to sides.
--- NOTE | 2018-07-23 19:05 | NUR ---
OPENING NOTE RECEIVED ENDORSEMENT REPORT FROM DAY NURSE VERENA AT BEDSIDE. PT IS AOX1. NO SOB NOTED. NO DISTRESS NOTED. CHEST RISE EVEN AND UNLABORED. NO S/S OF PAIN NOTED. PT DENIES PAIN AT THIS TIME. IV CLEAN, DRY, PATENT AND INTACT. ORIENTED PT TO HOSPITAL ROOM AND HOW TO USE ROOM PHONE AND CALL LIGHT TO CALL FOR ASSISTANCE. PT VERBALIZED UNDERSTANDING. SAFETY MEASURES IN PLACE. CALL LIGHT/ROOM PHONE WITHIN REACH, BED ALARM ON, BED WHEELS LOCKED, BED IN LOWEST POSITION, BED WHEELS LOCKED, SIDE RAILS UP X3, BEDSIDE TABLE WITHIN REACH. NO OTHER NEEDS AT THIS TIME. WILL CONTINUE TO MONITOR PT AND CONTINUE PT'S POC.
[2018-07-23 19:15] VITALS: BP_SYST 133
--- NOTE | 2018-07-23 19:15 | NUR ---
endorsed to incoming nurse Beth MCKEON
--- NOTE | 2018-07-23 20:15 | NUR ---
RN ROUNDS PT RESTING IN BED UNCOOPERATIVE AND COMBATIVE. PRN HALDOL IVP ADMINISTERED ORDERED. PT TOLERATED WELL. WILL MONITOR MEDICATION EFFECTIVENESS. SAFETY MEASURES IN PLACE. WILL CONTINUE TO MONITOR PT AND CONTINUE PT'S POC.
[2018-07-23] MEDS ORDERED: cefTRIAXone 1 GM VIAL ONE (20:49)
[2018-07-23] MEDS ORDERED: AZITHROMYCIN 500 MG/VIAL (ZITHROMAX) IV ONE (20:49)
[2018-07-23] MEDS: cefTRIAXone 1 GM in D5W 50 ML IV SCH (21:01)
[2018-07-23] MEDS: AZITHROMYCIN 500 MG in NS 250 ML IV SCH (21:34)
--- NOTE | 2018-07-23 21:45 | NUR ---
RN ROUNDS PT RESTING IN BED. NO SOB NOTED. NO DISTRESS NOTED. CHEST RISE EVEN AND UNLABORED. NO S/S OF PAIN NOTED. PT DENIES PAIN AT THIS TIME. VITAL SIGNS WNL. SCHEDULED MEDICATIONS ADMINISTERED ORDERED. NO OTHER NEEDS AT THIS TIME. SAFETY MEASURES IN PLACE. WILL CONTINUE TO MONITOR PT AND CONTINUE PT'S POC.
--- NOTE | 2018-07-24 | NUR ---
RN ROUNDS PT RESTING IN BED WITH EYES CLOSED. NO SOB NOTED. NO DISTRESS NOTED. CHEST RISE EVEN AND UNLABORED. NO S/S OF PAIN NOTED. NO NEEDS AT THIS TIME. SAFETY MEASURES IN PLACE. WILL CONTINUE TO MONITOR PT AND CONTINUE PT'S POC.
[2018-07-24 00:36] VITALS: BP_SYST 124
[2018-07-24] MEDS: CARBIDOPA/LEVODOPA 25/250 MG TABLET PO SCH ×5 (05:55→21:28)
--- NOTE | 2018-07-24 07:25 | NUR ---
received report at the bedside w/nite nurse. patient alert awake x 1. knows her name. lungs bilaterally diminished at the bases. abdomen soft and non distended. has iv access saline lock at left forearm #22. dry/patent. bed in low position. call lights within reach. safety measures maintained.instructed patient to call for assistance.
--- NOTE | 2018-07-24 07:43 | NUR ---
received report at the bedside.from herbert nurse. patient alert awake x 1. knows her name. vitals signs recorded. lungs bilaterally diminished at the bases. abdomen soft and non distended. still with iv access on the left forearm #22. dry/patent.w/eleonora wrapped around. has dressing on the left leg marie. dry/intact no drainage noted. bed in low position. call lights within reach. no pain nor acute distress noted. Addendum: 07/24/18 at 0746 by Arabella Cramer RN this is for the other patient.
--- NOTE | 2018-07-24 07:45 | NUR ---
has respiratory treatment given.
[2018-07-24 08:09] VITALS: BP_SYST 114
[2018-07-24] MEDS: FINASTERIDE 5 MG TABLET (PROSCAR) PO SCH (08:52)
[2018-07-24] MEDS: DOCUSATE SODIUM 100 MG CAPSULE PO SCH ×2 (08:52→20:19)
[2018-07-24] MEDS: MIDODRINE HCL 5 MG TABLET (PROAMATINE) PO SCH ×3 (08:52→20:19)
[2018-07-24] MEDS: CYANOCOBALAMIN 1000 mCg TABLET PO SCH (08:52)
[2018-07-24] MEDS: ENOXAPARIN SODIUM 40 MG/0.4 ML SYRINGE SUBCUT SCH (08:55)
--- NOTE | 2018-07-24 10:00 | NUR ---
turn to sides. with pillows on the back. placed pillows under the legs. had bowel movement small brown soft stool.
--- NOTE | 2018-07-24 10:05 | NUR ---
due medication given by crushing it with apple sauce. able to take it. hob elevated.
[2018-07-24] MEDS: HYDROCORTISONE 1%, 28.35 GM TOPICAL CREAM TP SCH ×2 (11:06→20:19)
[2018-07-24] MEDS: COMTAN 200 MG TAB PO SCH ×4 (11:06→20:19)
[2018-07-24 12:05] VITALS: BP_SYST 142
--- NOTE | 2018-07-24 13:00 | NUR ---
po medication crushed with apple sauce.
[2018-07-24] MEDS: ACETAMINOPHEN 325 MG TABLET PO PRN ×2 (13:27→22:04)
--- NOTE | 2018-07-24 13:48 | NUR ---
Discharge Planning: DCP made aware pt accepted to [facility] (f [phone] p [phone]) room will be available later today nurse made aware. Addendum: 07/24/18 at 1647 by Melissa Guerrero DP [facility] (f [phone] p [phone]) RM 127C, [facility] ([phone]) Will Call pt packet taken to nurse station. Nurse made aware
--- NOTE | 2018-07-24 14:20 | NUR ---
bebo bilingual patient support caseworker called patient has been accepted at [facility] room 127-C. but no order for discharge.
[2018-07-24 16:07] VITALS: BP_SYST 114
--- NOTE | 2018-07-24 16:09 | NUR ---
PAGED PAGED MISSY MORENO AT [phone] SPOKE WITH ANDERS.
--- NOTE | 2018-07-24 16:30 | NUR ---
DC Planning: late entry: Notified , that the pt is accepted at [facility] and had bed available this pm. The pt was off restraints and obeyed commands, the pt had been eating well. HENRY requested the md to call RN to give the dc order. The md responded to me " to hold the discharge today." -- LINDA Bell made aware.
--- NOTE | 2018-07-24 16:47 | NUR ---
awaiting for dr gaona for discharge order.
--- NOTE | 2018-07-24 16:59 | NUR ---
dr gaona was called for order to discharge, but dr gaona said not comfortable patient has bilateral wrist restraint today. discontinue ortiz catheter today.
--- NOTE | 2018-07-24 17:01 | NUR ---
from 1400pm family at the bedside. requested to have wrist restraint taken off. so Arabella Rn take off the wrist restraint till this time. patient quite and resting. not combative. stable. vitals signs within normal limits.
--- NOTE | 2018-07-24 17:16 | NUR ---
oralia torrez came to pick and shovel worker the patient. but patient bp is 187/90 Addendum: 07/24/18 at 1822 by Arabella Cramer RN not this patient.
--- NOTE | 2018-07-24 18:08 | NUR ---
oralia will come back at 700pm to warp picker the patient. Addendum: 07/24/18 at 1821 by Arabella Cramer RN not this patient.
--- NOTE | 2018-07-24 18:22 | NUR ---
patient is eating dinner by himself. but Didi assisted patient prepare and open milk, juice and pudding and apple sauce.
--- NOTE | 2018-07-24 18:23 | NUR ---
removed ortiz catheter at this time. with adequate output
--- NOTE | 2018-07-24 18:57 | NUR ---
[facility] called regarding this patient and informed that there is no discharge order yet.
[2018-07-24] MEDS ORDERED: cefTRIAXone 1 GM IVPB PREMIX 50 ML IV SCH (19:00)
--- NOTE | 2018-07-24 19:00 | NUR ---
assists to eat dinner tray eaten 100% of food. by himself.
--- NOTE | 2018-07-24 19:25 | NUR ---
OPENING NOTE RECEIVED CARE OF PT. PT RESTING IN BED, AWAKE BUT CONFUSED, NO S/S OF ACUTE DISTRESS. BREATHING IS EFFORTLESS TO ROOM AIR, WITH OXYGEN SATURATION AT 95%. NO S/S OF ACUTE DISTRESS. IV SITES ARE PATENT WITH NO SIGN OF INFILTRATION. PT ORIENTED TO USE OF CALL LIGHT AND ENCOURAGED TO CALL FOR ANY ASSISTANCE. SAFETY PRECAUTIONS IN PLACE: BED LOCKED IN LOWEST POSITION, CALL LIGHT WITH PT, SIDE RAILS UP X3, BED ALARM ON, CLOSE TO NURSES STATION. WILL MONITOR.
--- NOTE | 2018-07-24 19:25 | NUR ---
endorsed to incoming herbert Kraus Rn.
[2018-07-24 20:00] VITALS: BP_SYST 113
[2018-07-24] MEDS ORDERED: AZITHROMYCIN 500 MG in NS 250 ML IV SCH (20:00)
--- NOTE | 2018-07-24 22:04 | NUR ---
PAIN/TYLENOL PT REPORTING MILD GENERALIZED PAIN. TYLENOL 650 MG PO GIVEN. MEDICATION ACTION AND POTENTIAL SIDE EFFECTS EXPLAINED TO PT. PT CONFUSED AND DID NOT VERBALIZE UNDERSTANDING. SAFETY MAINTAINED. WILL MONITOR.
[2018-07-25 00:30] VITALS: BP_SYST 123
--- NOTE | 2018-07-25 00:30 | NUR ---
RN ROUNDS: PT RESTING IN BED, NO S/S OF ACUTE DISTRESS, BREATHING IS UNLABORED TO ROOM AIR. PT REPOSITIONED FOR COMFORT AND GIVEN PILLOW SUPPORT. PT TOLERATED WELL. SAFETY MAINTAINED. WILL MONITOR.
--- NOTE | 2018-07-25 01:45 | NUR ---
CLEANED/REPOSITIONED PT INCONTINENT OF BOWEL AND BLADDER. PT CLEANED AND PROVIDED FRESH LINENS AND GOWN. PT REPOSITIONED FOR COMFORT. NO S/S OF DISTRESS, PT TOLERATED WELL. SAFETY PRECAUTIONS IN PLACE: BED LOCKED IN LOWEST POSITION, CALL LIGHT WITH PT, SIDE RAILS UP X3, BED ALARM ON, CLOSE TO NURSES STATION. WILL MONITOR.
--- NOTE | 2018-07-25 03:14 | NUR ---
SLEEPING PT RESTING IN BED WITH EYES CLOSED. VISIBLE SYMMETRICAL RISE AND FALL OF CHEST, BREATHING IS UNLABORED TO ROOM AIR. NO S/S OF ACUTE DISTRESS. IV IS SALINE LOCKED. SAFETY PRECAUTIONS MAINTAINED. WILL MONITOR.
[2018-07-25] MEDS: CARBIDOPA/LEVODOPA 25/250 MG TABLET PO SCH ×3 (05:18→15:16)
--- NOTE | 2018-07-25 05:35 | NUR ---
CLEANED/REPOSITIONED PT INCONTINENT OF BLADDER. PT CLEANED AND PROVIDED FRESH LINENS AND GOWN. PT REPOSITIONED FOR COMFORT. NO S/S OF DISTRESS, PT TOLERATED WELL. SAFETY PRECAUTIONS IN PLACE: BED LOCKED IN LOWEST POSITION, CALL LIGHT WITH PT, SIDE RAILS UP X3, BED ALARM ON, AND CLOSE TO NURSES STATION. WILL CONTINUE TO MONITOR.
--- NOTE | 2018-07-25 06:35 | NUR ---
CLOSING NOTE PT RESTING IN BED, NO S/S OF ACUTE DISTRESS. BREATHING IS EVEN AND EFFORTLESS TO ROOM AIR. IV IS SALINE LOCKED, NO SIGN OF INFILTRATION AT IV SITE. PT APPEARS COMFORTABLE WITH NO SIGN OF PAIN OR DISCOMFORT. ALL NEEDS MET DURING SHIFT. SAFETY MAINTAINED. WILL ENDORSE CARE TO DAY SHIFT RN.
--- NOTE | 2018-07-25 07:35 | NUR ---
OPENING NOTE Patient resting in the bed. No acute distress. Skin warm and dry to touch. SL intact to right wrist and RFA, no redness, no swelling, patent. Safety measure maintained. Call light within reached. Bed locked in low position, side rails up, bed alarm on. Will continue to monitor.
[2018-07-25 08:00] VITALS: BP_SYST 124
--- NOTE | 2018-07-25 09:25 | NUR ---
JOHN AARON SEEN THE PATIENT AND TALKED TO PAT (P.O.A.) VIA PHONE Dr. Hwang seen and examined patient. Pat had phone call in and talked to Dr. Hwang via phone.
[2018-07-25] MEDS: MIDODRINE HCL 5 MG TABLET (PROAMATINE) PO SCH ×2 (10:27→15:16)
[2018-07-25] MEDS: ENOXAPARIN SODIUM 40 MG/0.4 ML SYRINGE SUBCUT SCH (10:28)
[2018-07-25] MEDS: DOCUSATE SODIUM 100 MG CAPSULE PO SCH (10:33)
[2018-07-25] MEDS: CYANOCOBALAMIN 1000 mCg TABLET PO SCH (10:33)
[2018-07-25] MEDS: FINASTERIDE 5 MG TABLET (PROSCAR) PO SCH (10:33)
[2018-07-25] MEDS: COMTAN 200 MG TAB PO SCH ×2 (10:34→13:59)
[2018-07-25] MEDS: HYDROCORTISONE 1%, 28.35 GM TOPICAL CREAM TP SCH (10:34)
--- NOTE | 2018-07-25 11:07 | NUR ---
DC Planning: Per dr. Hwang, he spoke with Peggy/LAURA this am to dc pt to [facility]. CM confirmed with Peggy who stated " the doctor already got the pt. in. and [facility] has bed for the pt ". Addendum: 07/25/18 at 1205 by Hilary Styles RN >> Faxed the referral package attn to Rosy/intake at [facility] fax# [phone], tel# [phone]. CM to f/u with the acceptance decision. Addendum: 07/25/18 at 1416 by Hilary Styles RN >>Per Rosy, the pt is accepted. Given bed # 12B, RN to report # [phone]. LINDA Bello made aware. Addendum: 07/25/18 at 1431 by Hilary Styles RN >> Activated the will call status and confirmed seed cone picker time at 4:30 pm by Rad / MedicGretta #[phone]. LAURA/Peggy and LINDA Bello made aware. Addendum: 07/25/18 at 1510 by Hilary Styles RN >> Late entry: notified Dorcas at [facility] that the pt. will be not coming. Dorcas stated " she aware , Peggy/LAURA called and told her that ordered pt going to [facility]".
--- NOTE | 2018-07-25 11:14 | NUR ---
FOLLOW UP DISCHARGE Called Pat (P.O.A.) to follow up the discharge. Per Pat wanted patient discharge to [facility] in [place]. Will notify customer care associate.
--- NOTE | 2018-07-25 11:18 | NUR ---
TALKED TO FORCE VARIATION EQUIPMENT TENDER Informed to Rebecca, per Peggy (P.O.A.) wanted to discharge patient to [facility] in [place] and talked to Dr. Hwang via phone this morning. Told Hilary if anything new to call Peggy.
--- NOTE | 2018-07-25 13:05 | NUR ---
ROUND Patient resting in the bed. No acute distress. Safety measure maintained. Call light within reached. Bed locked in low position, side rails up, bed alarm on. Call light within reached. Continue to monitor.
--- NOTE | 2018-07-25 13:55 | NUR ---
Dietitian Recommendations *Recommend continuing Pureed 2gm Na diet as tolerated. ONS Ensure Enlive comes standard w/ the diet and provides additional 1050 kcal and 60 gm protein daily. Please see Nutritional Assessment for details. YURY CLEMONS
[2018-07-25 14:16] VITALS: BP_SYST 141
[2018-07-25 16:00] VITALS: BP_SYST 141
--- NOTE | 2018-07-25 16:14 | NUR ---
ATTENDING MD DR AC WAS CALLED RE: DISCHARGE ORDER FOR [facility] . SPOKE TO ANDERS.
[2018-07-25 16:26] VITALS: BP_SYST 132
--- NOTE | 2018-07-25 16:30 | NUR ---
PT TRANSFERRED Report given to LINDA Iniguez at 1618. Transfer packet with Transfer Orders and Medication Reconciliation form given to EMT with report. Exitcare provided. SD[facility] ID band removed, replaced with ID band with pt's name and . IV catheter removed, intact and dressing applied, no active bleeding. All belongings sent with patient. Patient left floor via gurney escorted by EMT in no distress.
== END 2018-07-25 16:30 | DRG 189 ==
LOC: SED 15:24 → STU 18:16 → SMU 07-24 11:08
PROVIDERS: ADMIT Internal Medicine; ATTEND Internal Medicine
DX: J96.01 Acute respiratory failure with hypoxia (principal); G93.41 Metabolic encephalopathy; J44.1 Chronic obstructive pulmonary disease with (acute) exacerbation; J44.0 Chronic obstructive pulmonary disease with (acute) lower respiratory infection; J20.9 Acute bronchitis, unspecified; E86.0 Dehydration; G20 Parkinson's disease; F02.80 Dementia in other diseases classified elsewhere, unspecified severity, without behavioral disturbance, psychotic disturbance, mood disturbance, and anxiety; I10 Essential (primary) hypertension; H91.90 Unspecified hearing loss, unspecified ear; D64.9 Anemia, unspecified; I25.10 Atherosclerotic heart disease of native coronary artery without angina pectoris; N40.0 Benign prostatic hyperplasia without lower urinary tract symptoms; Z95.0 Presence of cardiac pacemaker; Z88.1 Allergy status to other antibiotic agents; Z88.2 Allergy status to sulfonamides; Z79.899 Other long term (current) drug therapy
CPT/HCPCS: 36415; 36600; 71045; 80053; 82803-TC; 83605; 83880; 84484; 85025; 85610-TC; 87040-TC; 87210-TC; 93005; 94640; 94760; 96365; 96366; 96367; 96375; 97110-GP; 97116-GP; 97530-GP; 99285; G0378; J0456; J0696; J1030; J1200; J1630; J1650; J1885; J1956; J2060; J2930; J3475; J7050; J7060; J7613

== ENCOUNTER 2018-07-28 20:47 | Inpatient (IN) | payer OTHER, MEDICARE ==
[~2018-07-28] VITALS: Ht 175.3 cm; Wt 73.0 kg
[2018-07-28 20:47] VITALS: BP_SYST 142
[~2018-07-28 20:47] MED LIST changes: +CARB-62 PO; -CARB1TAB21 PO; +CAT.1 PO; -CELE200C PO; -ESCI20TA PO; +LOT1%CR30 TP; -MECL-110 PO; +MOMETASONE TP; -TAMS0.4C96 PO; -TRAM50TA2 PO; +[UNRECOGNIZED DRUG - CODE] IJ
--- NOTE | 2018-07-28 21:04 | NUR ---
Placed in room 3. Placed on car dealer, blood pressure machine and pulse oximeter. To gown for exam. Side rails up.
--- NOTE | 2018-07-28 21:04 | NUR ---
Pt BIB BLS from [facility] r/t increased aggitaion. Pt AAOx2, mumbled speech. Pt was discharged from [facility] r/t COPD exacerbation on 07/26/18 and has since become more aggitated and attempting to hit staff. Pt has non-vesicular rash generalized to body.
--- NOTE | 2018-07-28 21:08 | NUR ---
Dr. Kimbrough at bedside.
[2018-07-28] MEDS ORDERED: cefTRIAXone 1 GM IVPB PREMIX 50 ML IV ONE (21:15)
[2018-07-28] MEDS ORDERED: AZIT-62 PO (21:18)
[2018-07-28] MEDS ORDERED: ACET-2165 PO (21:19)
--- NOTE | 2018-07-28 21:20 | NUR ---
# 20 gauge angiocath placed to RFA. Use of asceptic technique. Opsite placed over site. Blood return noted. Blood for lab drawn from site. Flushed with 10 cc of normal saline. No evidence of infiltration noted. Patient tolerated well.
[2018-07-28] MEDS ORDERED: BISA10SU61 RC (21:22)
[2018-07-28] MEDS ORDERED: NA P133E41 RC (21:24)
[2018-07-28] MEDS ORDERED: LYSI500T36 PO (21:24)
[2018-07-28] MEDS ORDERED: MULT-1189 PO (21:27)
[2018-07-28] MEDS ORDERED: CARB-62 PO (21:28)
--- NOTE | 2018-07-28 21:30 | NUR ---
X-ray at bedside.
--- NOTE | 2018-07-28 21:42 | NUR ---
Pt to CT via stretcher in stable condition.
[2018-07-28 21:49] LABS: BASOPHILS % (AUTO) 0.5 % (0.0-2.0); EOSINOPHILS # (AUTO) 1.9 K/uL (0.0-0.4); EOSINOPHILS % (AUTO) 17.3 % (0.0-4.0); HEMATOCRIT 36.1 % (36-54); HEMOGLOBIN 12.1 g/dL (14.0-18.0); LYMPHOCYTES # (AUTO) 1.2 K/uL (1.0-5.5); LYMPHOCYTES % (AUTO) 10.9 % (20.5-51.5); MEAN CORPUSCULAR HEMOGLOBIN 32 pg (27-31); MEAN CORPUSCULAR HGB CONC 33 % (32-36); MEAN CORPUSCULAR VOLUME 94 fL (79.0-98.0); MONOCYTES # (AUTO) 0.8 K/uL (0.0-1.0); MONOCYTES % (AUTO) 7.3 % (1.7-9.3); NEUTROPHILS # (AUTO) 6.9 K/uL (1.8-7.7); PLATELET COUNT (AUTO) 276 K/uL (130-430); RED BLOOD CELL COUNT(AUTO) 3.83 MIL/uL (4.2-6.2); RED CELL DISTRIBUTION WIDTH 14.9 % (9.0-15.0); WHITE BLOOD COUNT (AUTO) 10.8 K/uL (4.8-10.8)
[2018-07-28 21:54] LABS: ANION GAP 6 (5-15); CALCIUM 8.8 mg/dL (8.4-11.0); CHLORIDE 105 mmol/L (98-107); CREATININE 1.23 mg/dL (0.55-1.30); GLUCOSE 94 mg/dL (70-99); SODIUM SERUM 138 mmol/L (136-145); UREA NITROGEN, BLOOD 36 mg/dL (8-21)
--- NOTE | 2018-07-28 21:55 | NUR ---
Pt returns from CT. Placed on helicopter dispatcher.
[2018-07-28 21:59] LABS: ALANINE AMINOTRANSFERASE 18 U/L (12-78); ALBUMIN 2.9 g/dL (3.4-4.8); ASPARTATE AMINOTRANSFERASE 23 U/L (10-37); TOTAL BILIRUBIN 0.5 mg/dL (0.0-1.0)
[2018-07-28 22:36] LABS: BILIRUBIN,URINE NEGATIVE (NEGATIVE); BLOOD, URINE NEGATIVE (NEGATIVE); CLARITY/URINE CLEAR (CLEAR); GLUCOSE,URINE TRACE (NEGATIVE); KETONES,URINE TRACE (NEGATIVE); LEUKOCYTE ESTERASE ,URINE NEGATIVE (NEGATIVE); NITRITE, URINE NEGATIVE (NEGATIVE); PH,URINE 5.5 (5.0-8.0); PROTEIN URINE 1+ (NEGATIVE)
[2018-07-28 22:41] LABS: COLOR,URINE ORANGE (YELLOW)
[2018-07-28] MEDS ORDERED: ALBU8.5H8 INH (22:51)
[2018-07-28] MEDS ORDERED: MOME45CR17 TP (22:55)
[2018-07-28 22:57] LABS: BACTERIA,URINE FEW /HPF (None Seen); HYALINE CASTS, URINE 0-10 /LPF (None Seen); RBC,URINE 0-3 /HPF (0-3); WBC,URINE 0-3 /HPF (0-3)
--- NOTE | 2018-07-28 22:58 | NUR ---
Pt resting quietly with eyes closed, easily awakened, remains AAOx2. VSS, NAD.
--- NOTE | 2018-07-28 23:10 | NUR ---
Pt aggitated and scratching rashes. Dr. Kimbrough notified.
[2018-07-28] MEDS ORDERED: DIPHENHYDRAMINE INJ 50 MG/ML VIAL IVP ONE (23:15)
[2018-07-28] MEDS ORDERED: LORazepam 2 MG/ML VIAL (FOR ER USE) IVP ONE (23:15)
--- NOTE | 2018-07-28 23:20 | NUR ---
Blood collected for second lactic acid. Sent to lab.
--- NOTE | 2018-07-28 23:44 | NUR ---
Pt continues to thrash about in bed after being medicated with Ativan and Benadryl IVP. Dr. Kimbrough notified. Pt to receive Haldol.
[2018-07-28] MEDS ORDERED: HALOPERIDOL LACTATE 5 MG/ML VIAL IM ONE (23:45)
[2018-07-29] MEDS ORDERED: HALOPERIDOL LACTATE 5 MG/ML VIAL IVP PRN
--- NOTE | 2018-07-29 | NUR ---
Patient will be admitted to care of Dr. Hwang. Admitted to Tele unit. Will go to room 105. Belongings list completed. Summary report printed. Report will be given at bedside.
--- NOTE | 2018-07-29 00:18 | NUR ---
ADMIT NOTE Received pt from ER to the floor with a diagnosis of agitation. Admission process initiated. patient oriented to pain management, safety and call light-pt is confused.
[2018-07-29 00:36] VITALS: BP_SYST 130
--- NOTE | 2018-07-29 01:05 | NUR ---
PAGED DR. AC FOR ORDERS FOR PATIENT. I SPOKE WITH SONIA.
--- NOTE | 2018-07-29 01:10 | NUR ---
Initial RN notes Pt awake, confused, agitated. VSS O2 sat 93% on room air. IV on R. FA came off. Re-started IV on L.UA 18G via aseptic technique, good blood return with 4 people assist. Generalized rash noted all over body, photos taken, no skin breakdown noted. Safety measures in place. Pt is NPO. Bed low, locked, side rails x3 up, bed alarm on. Placed near nursing station. Will continue to monitor.
--- NOTE | 2018-07-29 01:15 | NUR ---
call quintin villegas ([facility]) at [phone]- inform her that pt will on bilateral soft wrist restrain. quintin acknowledge and agree.
--- NOTE | 2018-07-29 01:40 | NUR ---
2ND PAGE FOR DR. AC FOR ORDERS FOR THE PATIENT. I SPOKE WITH SOINA.
--- NOTE | 2018-07-29 02:19 | NUR ---
spoke to dr. gaona- report to md, pt is getting out of bed, pulling his iv line, pulling out his monitor. ask for for soft wrist restrain. md order bilateral soft wrist restrain.
--- NOTE | 2018-07-29 03:05 | NUR ---
Rounds Pt resting with eyes closed, occasionally mumbles. No acute distress noted. Safety measures in place. To monitor.
--- NOTE | 2018-07-29 06:36 | NUR ---
Closing notes Pt asleep, respirations even and unlabored. No s/s distress noted. Jc wrist restraints in place. IV saline lock L.UA 18G clear and patent. Bed low, locked, side rails x 3 up, bed alarm on. To endorse to AM nurse.
--- NOTE | 2018-07-29 07:45 | NUR ---
opening note patient is resting in bed, I asked patient if he could tell me his name of but patient did not saying anything, assessment completed, no signs of distress, educated front maker lockstitch light system and plan of care, wrist restraints in place, IV site clean and dressing intact, no other needs at this time, fall/safety precautions in place, patient close to nurse station.
[2018-07-29 08:22] VITALS: BP_SYST 120
--- NOTE | 2018-07-29 09:30 | NUR ---
spoke with in the room came by, updated her on the patient, introduced her to Dr Hwang, patient verbalizes understanding for patient being on restraints, patient is resting in bed eyes closed breathing easy and nonlabored, no other needs addressed at this time, fall/safety precautions in place.
--- NOTE | 2018-07-29 09:53 | NUR ---
CONSULTATION: REASON FOR CONSULT: DEMENTIA CONSULTING PHYSICIAN: SRINIVAS SAUL MD ORDERED BY: DR AC SPOKE WITH VADIM [phone]
--- NOTE | 2018-07-29 10:14 | NUR ---
Nutrition Update Adeel Scale 13 noted. Pt admitted for agitation. Diet: NPO BMI: 23.6 kg/m2 RD to follow per nutrition care standards.
[2018-07-29] MEDS: D5NS 1,000 ML IV SCH ×2 (10:18→21:53)
[2018-07-29 11:24] VITALS: BP_SYST 150
--- NOTE | 2018-07-29 12:30 | NUR ---
rounds patient is resting in bed, eyes closed breathing easy and nonlabored, tossing and turning, but not verbalizing anything and not trying to pull IV, IV site clean with IV fluids running, no other needs at this time, fall/safety precautions in place.
--- NOTE | 2018-07-29 14:09 | NUR ---
rounds and call from EEG patient is resting in bed, eyes closed breathing easy and nonlabored, tossing and turning, but not verbalizing anything and not trying to pull IV, IV site clean with IV fluids running, no other needs at this time, fall/safety precautions in place, got a call from cardiopulmonary office and told me that the technical planner will be here tomorrow morning.
--- NOTE | 2018-07-29 14:11 | NUR ---
Initial DCP assessment: S/w LAURA Rico via phone re dcp for snf placement. She was not sure whether the pt can return to [facility] dt behavior issue. She doen't mind but would like to have a facility go toward [place]. She does not want pt going to [facility] dt medicare star rating. She will check out [facility], and [facility] tomorrow. -- CM to f/u.
[2018-07-29 15:28] VITALS: BP_SYST 154
--- NOTE | 2018-07-29 16:57 | NUR ---
rounds patient is resting in bed, eyes closed breathing easy and nonlabored, tossing and turning, but not verbalizing anything and not trying to pull IV, IV site clean with IV fluids running, patient pulled off electrodes but was placed back on, no other needs at this time, fall/safety precautions in place.
--- NOTE | 2018-07-29 18:52 | NUR ---
closing note patient is resting in bed, eyes closed breathing easy and nonlabored, tossing and turning, but not verbalizing anything and not trying to pull IV, IV site clean with IV fluids running, patient pulled off electrodes but was placed back on, no other needs at this time, fall/safety precautions in place, will endorse report to noc shift nurse to continue with patient care, EEG will be done tomorrow morning around 0900.
--- NOTE | 2018-07-29 19:30 | NUR ---
PT WAS RECEIVED LYING IN BED SLEEPING, BUT EASILY AROUSABLE. NO ACUTE DISTRESS NOTED. PT IS ORIENTED TO HIS NAME ONLY. PT IS COOPERATIVE AND NON-COMBATIVE. IVF OF D5NS IS INFUSING WELL IN [place] WITHOUT ANY SIGNS OF INFILTRATION NOTED AT THE IV SITE. FALL AND SAFETY PRECAUTIONS ARE IN PLACE. CALL LIGHT IS WITH PT AND BED ALARM IS ON.
[2018-07-29 20:00] VITALS: BP_SYST 142
--- NOTE | 2018-07-29 21:55 | NUR ---
Pt is not in any distress at this time. IVF is infusing well in JEVON. No agitation or combativeness noted. Pt is incontinent of large amount of yellowish urine. Isabella care and bed bath given by RN and DIRECTOR OF RESOURCE DEVELOPMENT.
[2018-07-30 00:28] VITALS: BP_SYST 147
--- NOTE | 2018-07-30 00:29 | NUR ---
Pt is agitated and combative. Pt took off his gown and electrodes. Pt also attempting to get out of bed. Cardiac electrodes were reapplied and Haldol 2mg was given IVP. Pt refused to have his gown on. IVF is infusing well in [facility]. Call light is with pt and bed alarm is on.
--- NOTE | 2018-07-30 02:00 | NUR ---
Pt is sleeping comfortably in bed. No facial grimacing noted. Call light is with pt and bed alarm is on. IVF is infusing well in JEVON.
--- NOTE | 2018-07-30 04:00 | NUR ---
Pt is sleeping without any distress noted. IVF is infusing well in JEVON. quality assurance monitor is showing A Fib. Fall and safety precautions are in place.
[2018-07-30] MEDS: D5NS 1,000 ML IV SCH ×3 (05:45→20:52)
--- NOTE | 2018-07-30 06:30 | NUR ---
Pt is awake and resting comfortably in bed. No agitation or combativeness noted at this time. No fall or injury noted this shift. All pt's needs were attended to. IVF is infusing well in JEVON without any signs of infiltration. Call light is with pt and bed alarm is on. Will endorse to day shift nurse.
--- NOTE | 2018-07-30 07:50 | NUR ---
opening note patient is resting in bed, I asked patient if he could tell me his name of but patient did not saying anything, assessment completed, no signs of distress, educated pressure control supervisor light system and plan of care, IV site clean and dressing intact with IV fluids running, no other needs at this time, fall/safety precautions in place, patient close to nurse station.
[2018-07-30 08:00] VITALS: BP_SYST 145
--- NOTE | 2018-07-30 09:39 | NUR ---
rounds patient is resting in bed, with BRASS PICKLER assist patient's linens were changed, IV line flushed, no other needs at this time, fall/safety precautions in place.
[2018-07-30] MEDS ORDERED: HALOPERIDOL LACTATE 5 MG/ML VIAL IM PRN (10:15)
--- NOTE | 2018-07-30 11:15 | NUR ---
mechanical sound technician in room patient resting in bed, EEG getting done, no other needs at this time, fall/safety precautions in place.
[2018-07-30 11:28] VITALS: BP_SYST 132
--- NOTE | 2018-07-30 15:25 | NUR ---
rounds patient is resting in bed, eyes closed breathing easy and nonlabored,IV site clean with IV fluids running, no other needs at this time, fall/safety precautions in place.
[2018-07-30 15:35] VITALS: BP_SYST 149
--- NOTE | 2018-07-30 18:35 | NUR ---
closing note patient is resting in bed, oral care done, no signs of distress, patient was able to verbalize "water" and "thank you" to me, IV site clean and dressing intact with IV fluids running, no other needs at this time, fall/safety precautions in place, patient close to nurse station, will endorse report to noc shift nurse to continue with care, Haldol prn has been changed from IVP to IM, if Dr Garcia comes let him know that the soil technician asked if there is a history of seizure for the patient.
--- NOTE | 2018-07-30 19:20 | NUR ---
PM SHIFT ASSESSMENT Received patient lying in bed, aox1, calm does not appear agitated, vital signs stable, asking for water, npo at this time, IV line to left upper arm intact and patent, IVF infusing, fall and safety measures in place, bilat scd in to lower legs, will closely monitor.
[2018-07-30 20:04] VITALS: BP_SYST 142
--- NOTE | 2018-07-30 20:06 | NUR ---
IV Patient's IV infiltrated, new IV line placed on right ac with 20 guage catheter, good blood return noted, secured with opsite and tape. Continued with IVF of D%NS @100 ml/hr. Patient given a bed bath, turned and repositioned, safety measures in place, will monitor. Addendum: 07/30/18 at 2333 by Deidre Stapleton RN IVF of D5NS @ 100 ml/hr.
--- NOTE | 2018-07-30 22:27 | NUR ---
RN ROUNDS Patient asleep, respirations even and unlabored, IVF ongoing, repositioned and turned with pillow support, safety measures in place, will monitor.
--- NOTE | 2018-07-30 23:31 | NUR ---
IV Patient's IV to right ac out of the vein, new IV line placed on right forearm with 22 gauge catheter, good blood return noted, secured with opsite and tape. Continued with IVF of D5NS @100 ml/hr. Will monitor signs of infiltration.
[2018-07-30 23:50] VITALS: BP_SYST 124
--- NOTE | 2018-07-31 00:11 | NUR ---
RN ROUNDS Patient asleep, respirations even and unlabored, IVF ongoing, vital signs stable. Repositioned and turned with pillow support, safety measures in place, will monitor.
--- NOTE | 2018-07-31 02:35 | NUR ---
RN ROUNDS Patient continues to sleep, respirations even and unlabored, repositioned and turned with pillow support, safety measures in place, will continue to monitor.
--- NOTE | 2018-07-31 04:13 | NUR ---
RN ROUNDS Patient continues to sleep, respirations even and unlabored, repositioned and turned with pillow support, safety measures in place, will continue to monitor.
--- NOTE | 2018-07-31 06:17 | NUR ---
RN ROUNDS Patient resting quietly, IV line intact and patent, IVF of D5NS infusing at 100 ml/hr. Patient given incontinence care, repositioned and turned with pillow support, needs attended to, safety and fall measures maintained through out the shift, will continue to monitor until report given to am nurse.
--- NOTE | 2018-07-31 07:26 | NUR ---
Opening Note received bedside SBAR report from shift engineer RN, patient resting in bed, no acute distress noted, respirations even and unlabored on room air, room close to nurses station, educated patient on use of call light and asked to call for assistance, patient verbalized understanding, call light in reach, bed in low and locked position, bed alarm on.
[2018-07-31 08:00] VITALS: BP_SYST 145
[2018-07-31] MEDS: D5NS 1,000 ML IV SCH (08:17)
--- NOTE | 2018-07-31 08:19 | NUR ---
Incontinent patient incontinent of urine, patient cleaned and linen changed, assisted patient to reposition, patient tolerated well, no acute distress noted.
--- NOTE | 2018-07-31 09:48 | NUR ---
Oral care oral care provided, patient tolerated well, assisted patient to reposition, no acute distress noted.
--- NOTE | 2018-07-31 11:12 | NUR ---
Physician Rounds Rounds with Dr. Hwang, informed him of generalized rash, red, raised to patients skin, no new orders.
[2018-07-31 11:24] VITALS: BP_SYST 151
--- NOTE | 2018-07-31 12:11 | NUR ---
RN Rounds patient eating lunch with assistance from TRUCK SPOTTER, tolerating well, patient denies any nausea, no acute distress noted.
--- NOTE | 2018-07-31 12:54 | NUR ---
Discharge Planning; DCP faxed pt referral to [facility] (f [phone] p [phone]) DCP to follow. Addendum: 07/31/18 at 1418 by Melissa LONDON DCP followed up [facility] (f [phone] p [phone]) per Taya is reviewing referral.
--- NOTE | 2018-07-31 14:03 | NUR ---
Incontinent patient incontinent of urine, patient cleaned and repositioned, tolerated well, no acute distress noted.
[2018-07-31 15:44] VITALS: BP_SYST 118
--- NOTE | 2018-07-31 16:00 | NUR ---
Dc Planning: F/U with Peggy Godoy/LAURA about her chosen snf: she had done some research with different snf and decided for [facility]. She requested to send the referral inquiry to [facility] attn: Toshia.-- Melissa FIGUEROA is to process the request. Addendum: 08/01/18 at 1423 by Hilary Styles RN Late entry: Peggy made aware that the pt may have snf of choice where Peggy was looking at [facility] and one addition snf provided today : [facility].
--- NOTE | 2018-07-31 16:23 | NUR ---
RN Rounds patient resting in bed watching TV, patient denies any pain, no acute distress noted, no additional needs at this time.
--- NOTE | 2018-07-31 18:35 | NUR ---
RN Rounds patient resting in bed, no acute distress noted, patient denies any pain, no additional needs at this time.
--- NOTE | 2018-07-31 19:10 | NUR ---
PT WAS RECEIVED IN BED FULLY AWAKE AND ORIENTED TO HIS NAME ONLY. NO C/O PAIN OR DISCOMFORT AND NO ACUTE DISTRESS NOTED. SALINE LOCK IN RFA IS WITHOUT ANY SIGNS OF INFILTRATION. FALL AND SAFETY PRECAUTIONS ARE IN PLACE. CALL LIGHT IS WITH PT AND BED ALARM IS ON.
--- NOTE | 2018-07-31 19:12 | NUR ---
Closing Note bedside SBAR report given to receiving RN, patient resting in bed, no acute distress noted, room close to nurses station, educated patient on use of call light and asked to call for assistance, patient verbalized understanding, call light in reach, bed in low and locked position, bed alarm on, care endorsed to retail shift leader RN.
[2018-07-31 20:00] VITALS: BP_SYST 120
--- NOTE | 2018-07-31 22:00 | NUR ---
Pt is resting quietly in bed without any distress noted. Call light is with pt and bed alarm is on. Saline lock is intact in RFA.
--- NOTE | 2018-07-31 23:40 | NUR ---
Haldol: New order for Haldol received earlier from Dr. Hwang for patient's agitation. Called remote pharmacy multiple times on multiple phones to have the medication order verified, but the line was busy each time they were called. Remote pharmacy also called by REVA Webster RN to confirm that they could not be contacted at this time. Medication was removed from [facility]xis via override for the safety of the nursing staff in the patient's room. Addendum: 08/02/18 at 0037 by Wing Ahmadi RN Correction: Wrong date.
--- NOTE | 2018-08-01 00:30 | NUR ---
Pt is sleeping comfortably in bed. No respiratory distress noted. Call light is with pt and bed alarm is on. Saline lock is intact in RFA.
[2018-08-01 00:48] VITALS: BP_SYST 135
--- NOTE | 2018-08-01 02:00 | NUR ---
Pt is sleeping comfortably in bed without any distress noted. Call light is with pt and bed alarm is on.
--- NOTE | 2018-08-01 04:00 | NUR ---
Pt is resting in bed without any distress noted. Fall and safety precautions are in place. Saline lock is intact in RFA.
--- NOTE | 2018-08-01 06:30 | NUR ---
Pt is awake and resting comfortably in bed. No agitation or combativeness noted at this time. No fall or injury noted this shift. All pt's needs were attended to. Saline lock is intact in RFA without any signs of infiltration. Call light is with pt and bed alarm is on. Will endorse to day shift nurse.
--- NOTE | 2018-08-01 07:22 | NUR ---
Opening Note: Patient in bed resting. Patient denies pain and discomfort. Breathing is even and unlabored with no distress noted. No agitation at this time. IV patent and intact and saline locked. SCD's in place. Safety precautions in place; bed in lowest position, wheels locked, side rails x3, bed alarm activated and call light within reach. No needs at this time. Will continue to monitor.
[2018-08-01 08:24] VITALS: BP_SYST 107
--- NOTE | 2018-08-01 10:20 | NUR ---
Rounds: Patient in bed resting, repositioned. Will continue to monitor.
[2018-08-01] MEDS ORDERED: ACETAMINOPHEN 325 MG TABLET PO PRN (11:00)
[2018-08-01] MEDS ORDERED: ALBUTEROL SULFATE 0.083% 2.5 MG/3 ML VIAL.NEB INH PRN (11:00)
[2018-08-01] MEDS ORDERED: cloNIDine HCL 0.1 MG TABLET PO PRN (11:00)
[2018-08-01] MEDS ORDERED: IPRATROPIUM BROM 0.5 MG/2.5 ML VIAL.NEB (ATROVENT) INH PRN (11:00)
[2018-08-01] MEDS ORDERED: BISACODYL 10 MG/SUPPOSITORY RC PRN (11:00)
--- NOTE | 2018-08-01 11:10 | NUR ---
PT: Patient walking with PT, using a walker and assist, steady gait.
--- NOTE | 2018-08-01 11:16 | NUR ---
Discharge Planning: DCP faxed pt referral to [facility] (f [phone] p [phone]) DCP to follow up. Addendum: 08/01/18 at 1306 by Melissa Guerrero DP [facility] ([phone] p [phone]) Cam stated she needed to know patients DC plan after being there for care. Also Cam is having difficulty contacting family. Addendum: 08/01/18 at 1323 by Melissa Guerrero DP Per Cam patient will be accepted, will needed all information requested.
[2018-08-01 11:26] VITALS: BP_SYST 107
[2018-08-01] MEDS: IPRATROPIUM BROM 0.5 MG/2.5 ML VIAL.NEB (ATROVENT) INH SCH ×3 (11:26→20:41)
[2018-08-01] MEDS: ALBUTEROL SULFATE 0.083% 2.5 MG/3 ML VIAL.NEB INH SCH ×3 (11:26→20:41)
[2018-08-01 11:36] VITALS: BP_SYST 154
--- NOTE | 2018-08-01 11:51 | NUR ---
Dietitian Recommendations * Recommend advance diet as per ST rec and physician order LP, RD Please refer to Nutrition Assessment for details.
--- NOTE | 2018-08-01 12:01 | NUR ---
Rounds: Patient in bed resting. Patient denies pain and discomfort. Breathing is even and unlabored with no distress noted. No agitation at this time. Repositioned for comfort. Safety precautions in place; bed in lowest position, wheels locked, side rails x3, bed alarm activated and call light within reach. No needs at this time. Will continue to monitor.
[2018-08-01] MEDS: COMTAN 200 MG TAB PO SCH ×3 (13:31→21:40)
[2018-08-01] MEDS: CARBIDOPA/LEVODOPA 25/250 MG TABLET PO SCH ×3 (13:31→21:40)
--- NOTE | 2018-08-01 13:40 | NUR ---
Transfer of Care: Report given to Brittani MCKEON.
--- NOTE | 2018-08-01 13:43 | NUR ---
TRANSFER OF CARE RECEIVED PT FROM [facility], PT IN STABLE CONDITION, PT AAOX1, VERBAL. PT IN STABLE CONDITION, NO S/S OF DISTRESS OR SOB NOTED, PT HAS AN IV CATHETER, PATENT, SALINE LOCK. NOTED RASH ALL OVER BODY. PT AAOX1, CONFUSED, VERBAL, PROVIDED PT WITH REALITY ORIENTATION. FALL AND SAFETY PRECAUTIONS IN PLACE. AWAITING FOR SWALLOW EVAL. WILL CONTINUE TO MONITOR PT FOR ANY CHANGES.
--- NOTE | 2018-08-01 14:17 | NUR ---
LATE ENTRY SPEECH THERAPIST, CHERYL WAS CALLED, RE: SWALLOWING EVAL. LEFT A VOICE MESSAGE @ 1330.
--- NOTE | 2018-08-01 15:00 | NUR ---
DC Planning: Informed Pat, that [facility] is unable to accepted the pt. due to no skill needs. She will consider taking pt in as longterm memory care unit. Pat aware that [facility] is accepting the pt. today. Pat also has plan to take pt to a new assisted living. Pat will tour both facilities tomorrow. She might agree to send pt. to [facility] if unable to get pt to the new assisted living. HENRY informed her about the "IM letter" which she acknowledged via phone witnessed by 2 human services case manager: Hilary and Georgina. Address and phone number for [facility] and [place] provided to Pat. The " IM letter " is filed in pt's chart.
--- NOTE | 2018-08-01 16:03 | NUR ---
S.T. SWALLOW EVAL SWALLOW EVAL COMPLETED. PT PRESENTS W/ MOD ORAL AND MOD-SEV PHARYNGEAL DYSPHAGIA W/ IMPAIRED BOLUS MANIPULATION/TRANSFER, DELAYED SWALLOW, COUGHING ON THIN LIQUIDS AND INCONSISTENT COUGHING ON NECTAR THICK LIQUIDS. PT IS AT RISK FOR ASPIRATION. REC: PUREE DIET. THICKENED LIQUIDS (HONEY CONSISTENCY). NO STRAW. VIDEO SWALLOW STUDY. NURSE NUPUR NOTIFIED. [id number] CL G8997 CL G8998 CL NOMS LEVEL 3
--- NOTE | 2018-08-01 16:04 | NUR ---
TIMOTHY Planning: Received a fax from [employer] indicated the Control ID# [id number] -- the copy of the notification was delivered to Medical Record by CAROLINA Torres.
[2018-08-01 16:08] VITALS: BP_SYST 130
--- NOTE | 2018-08-01 16:45 | NUR ---
ROUNDS PT IN BED, SLEEPING, NO S/S OF DISTRESS OR SOB NOTED, PT HAS NO FACIAL GRIMACING NOTED FOR PAIN, PT IN STABLE CONDITION, WILL CONTINUE TO MONITOR PT FOR ANY CHANGES.
--- NOTE | 2018-08-01 16:51 | NUR ---
MD DOE SPOKE WITH DR AC IN REGARDS TO RESULTS OF SWALLOW EVAL, MD ORDERED PUREED DIET WITH THICKENED LIQUIDS AND A VIDEO SWALLOW EVAL.
--- NOTE | 2018-08-01 18:18 | NUR ---
CLOSING NOTE PT IN BED, NO S/S OF DISTRESS OR SOB NOTED, PT HAS NO C/O PAIN AT THIS TIME, PT IN STABLE CONDITION, PT RESTIN COMFORTABLY, IV CATHETER PATENT, SALINE LOCK. BED AT LOWEST POSITION, CALL LIGHT WITHIN REACH, WILL ENDORSE CARE OF PT TO INCOMING NURSE, FALL AND SAFETY PRECAUTIONS IN PLACE.
--- NOTE | 2018-08-01 19:46 | NUR ---
Initial note: Received report from dayshift RN. Patient is awake in bed, no acute distress. Alert and oriented to name only, does not appear agitated at this time. Tolerating room air, respirations are even and unlabored. IV site to right forearm is patent and benign. Call light is with patient. Safety and fall precautions in place. Will continue to with plan of care.
[2018-08-01 20:30] VITALS: BP_SYST 125
[2018-08-01] MEDS: DOCUSATE SODIUM 100 MG CAPSULE PO SCH (21:40)
--- NOTE | 2018-08-01 21:48 | NUR ---
Med pass: Scheduled medications administered at this time. HOB elevated to high-Perla's. Tablet medications administered in halves, capsule medications administered whole. Administered with thickened water. Patient tolerated well, no coughing noted. Will continue monitoring.
--- NOTE | 2018-08-01 23:31 | NUR ---
PAGED FOR DR. AC. THEY CALLED THE DOCTOR ANS HE ANSWERED. THE NURSE WAS ABLE TO TALK TO HIM FOR ORDERS.
--- NOTE | 2018-08-01 23:39 | NUR ---
Dr. Hwang: Spoke with MD over phone, made aware regarding patient's agitation. Received order for Haldol 5 MG IM Q6hr PRN. Verified via read-back, RN will input order.
--- NOTE | 2018-08-01 23:40 | NUR ---
Haldol: New order for Haldol received earlier from Dr. Hwang for patient's agitation. Called remote pharmacy multiple times on multiple phones to have the medication order verified, but the line was busy each time they were called. Remote pharmacy also called by REVA Webster RN to confirm that they could not be contacted at this time. Medication was removed from [facility]xis via override for the safety of the nursing staff in the patient's room.
--- NOTE | 2018-08-01 23:45 | NUR ---
Combative: Patient is awake, attempting to get out of bed. Reoriented patient to surroundings, but patient became agitated and combative, hitting and kicking nursing staff. Haldol 5 MG IM indicated. Administered medication as ordered. supervisor elementary education LINDA Carver, Miguel A RN, RT Amy, and MELL Poole present in room to maintain safety while medication was being administered. Incontinence care provided after medication administration. Will continue to monitor patient.
[2018-08-01] MEDS ORDERED: HALOPERIDOL LACTATE 5 MG/ML VIAL ONE (23:55)
[2018-08-02] MEDS: HALOPERIDOL LACTATE 5 MG/ML VIAL IM PRN ×2 (00:01→22:11)
[2018-08-02 00:58] VITALS: BP_SYST 139
--- NOTE | 2018-08-02 01:10 | NUR ---
Dr. Hwang: Spoke with Dr. Hwang over phone, MD made aware that patient is still agitated and that the Haldol 5 MG IM administered earlier was ineffective. Received order for bilateral soft wrist restraints and consult for Dr. Chavis. Orders verified via read-back, RN to input and follow through with orders. Addendum: 08/02/18 at 0673 by Wing Ahmadi RN MARLEN Crooks-Walt notified regarding restraints order, she does not oppose use of restraints. Indications for restraints discussed, provided opportunity for questions and concerns.
--- NOTE | 2018-08-02 02:02 | NUR ---
CONSULT REASON FOR CONSULT: AGITATION PERSON I SPOKE WITH: ALISHA CONSULTING PHYSICIAN: DR. GABRIEL (DR. DAVILA WAS PAGED FOR THE CONSULT) RECEIVING INSPECTOR PHONE NUMBER: [phone] ORDERING PHYSICIAN: DR. AC
--- NOTE | 2018-08-02 04:25 | NUR ---
Rounds: Patient is awake in bed lifting legs up and over the side rails. No acute distress, respirations are even and unlabored on room air. Bilateral soft wrist restraints are safely in place as ordered. Safety and fall precautions in place. Will continue to closely monitor.
[2018-08-02] MEDS: CARBIDOPA/LEVODOPA 25/250 MG TABLET PO SCH ×5 (06:00→20:31)
--- NOTE | 2018-08-02 06:06 | NUR ---
Closing note: Patient is awake in bed, no distress. Respirations are even and unlabored on room air. Patient is still kicking feet and placing them over the side rails. Bilateral soft wrist restraints in place as ordered. All needs met. Safety and fall precautions in place. Will endorse to dayshift RN.
--- NOTE | 2018-08-02 07:05 | NUR ---
INITIAL NOTE RECEIVED PATIENT FROM DIGITAL MEDIA PLANNER NURSE, PATIENT CURRENTLY RESTING IN BED, NO SIGNS OF DISTRESS NOTED, RESTRAINTS CURRENTLY ON BILATERAL WRIST, NO SIGNS OF CIRCULATION PROBLEMS NOTED. CALL SR WITHIN REACH, BED IN LOWEST POSITION, WILL CONTINUE TO MONITOR.
[2018-08-02 07:08] VITALS: BP_SYST 117
[2018-08-02] MEDS: ALBUTEROL SULFATE 0.083% 2.5 MG/3 ML VIAL.NEB INH SCH (07:15)
[2018-08-02] MEDS: IPRATROPIUM BROM 0.5 MG/2.5 ML VIAL.NEB (ATROVENT) INH SCH (07:16)
[2018-08-02] MEDS: FINASTERIDE 5 MG TABLET (PROSCAR) PO SCH (08:40)
[2018-08-02] MEDS: CYANOCOBALAMIN 1000 mCg TABLET PO SCH (08:40)
[2018-08-02] MEDS: DOCUSATE SODIUM 100 MG CAPSULE PO SCH ×2 (08:40→20:30)
[2018-08-02] MEDS: COMTAN 200 MG TAB PO SCH ×4 (08:40→20:30)
--- NOTE | 2018-08-02 08:48 | NUR ---
MEDICATION PATIENT RECEIVED MORNING MEDICATION, PATIENT TOLERATED WELL, WILL CONTINUE TO MONITOR.
--- NOTE | 2018-08-02 08:55 | NUR ---
RN ROUNDS PATIENT RELEASED FROM RESTRAINTS AND UP WITH PT. PATIENT COOPERATIVE, RESTRAINTS WERE NOT REAPPLIED, WILL CONTINUE TO MONITOR PATIENT FOR SAFETY.
--- NOTE | 2018-08-02 09:40 | NUR ---
RN ROUNDS CRISTIANA FOR A BOARD AND CARE IS HERE TO EVALUATE PATIENT, FAMILY FRIEND/POWER OF FUNDRAISING COORDINATOR IS HERE WELL DISCUSSING FUTURE CARE FOR PATIENT.
--- NOTE | 2018-08-02 10:10 | NUR ---
RN ROUNDS PATIENT RESTING IN BED, NO SIGNS OF DISTRESS NOTED, NO COMPLAINTS OF PAIN OR DISCOMFORT. WILL CONTINUE TO MONITOR.
--- NOTE | 2018-08-02 11:00 | NUR ---
DR. NERY GABRIEL CAME AND EVALUATED PATIENT, RN INFORMED DR. GABRIEL THAT PATIENT WILL BE DISCHARGED TODAY TO A SENIOR BOARD AND CARE, DR. GABRIEL STATED THAT PATIENT NEEDS TO BE STABILIZED FIRST THEN THE PATIENT CAN BE TRANSFERRED. DR. GABRIEL STATED HE SPOKE WITH DR. AC ABOUT THE PATIENT ALREADY AND HE WANTS TO TRANSFER PATIENT TO [facility]. DR. SANTA GAVE RN NUMBER TO [facility] AND STATED HE WAS GOING TO CALL SOON BUT STILL CALL TO NOTIFY THEM THAT A PATIENT IS COMING. RN INFORMED SHEILA BAND BOOKERCARDIOLOGY FELLOW.
[2018-08-02 11:13] VITALS: BP_SYST 104
--- NOTE | 2018-08-02 12:15 | NUR ---
DC Planning: Received request to transfer pt to [facility], per RN Shawna: Dr Partha toure the pt this am and told her to transfer pt to geropsych unit at [facility]. CM requested the RN to notify dr. Hwang and to get the transfer order. HENRY Gonzalez made aware and she will confirm the plan with POA/Peggy Godoy.
--- NOTE | 2018-08-02 12:26 | NUR ---
HENRY spoke with Peggy Valeriy KnottWalt ( Patient's POA) @ P to confirm plan with POA. Peggy Godoy stated " I came this morning and saw Dr. Hwang but he did not spoke with me regarding any plan for transfer or hospice. I had let him know that a board and care facility will be coming and evaluate dylan for acceptance. They have accepted Dylan, possibly tonight or tomorrow". Peggy also stated she is not agreeable to transferring patient to any psychiatric facility nor hospice care at this time. She only wanted patient to go to the board and care facility. Addendum: 08/02/18 at 1248 by Lisa Lopez RN Spoke with Dr. Hwang to confirm DC plan. stated that patient can be discharge to facility POA has arranged. HENRY also notified MD that accepting facility is a Board and care facility at [place], [place].
--- NOTE | 2018-08-02 12:30 | NUR ---
RN ROUNDS PATIENT RESTING IN BED WITH EYES CLOSED, NO SIGNS OF DISTRESS NOTED, WILL CONTINUE TO MONITOR.
--- NOTE | 2018-08-02 14:20 | NUR ---
RN ROUNDS PATIENT RESTING IN BED, NO SIGNS OF DISTRESS NOTED, PATIENT CURRENTLY WATCHING TV, WILL CONTINUE TO MONITOR, FALL PRECAUTIONS IN PLACE.
--- NOTE | 2018-08-02 14:50 | NUR ---
CM spoke with Gianluca Watson ( Director @ [facility]) @ , who confirmed they are able to accept patient and able to manage patient's condition, dementia, agitation and restlessness. They have a physician on staff at the facility in [place], [place]. They would need the Physician Report for [facility] be filled out prior accepting patient. Please completed form with physician signature to F . CM informed patient's nurse (Shawna) to have the physician report signed by Dr. Hwang. CM to follow up as needed.
--- NOTE | 2018-08-02 15:10 | NUR ---
PAGED PAGED MISSY MORENO AT [phone] SPOKE WITH BO.
--- NOTE | 2018-08-02 15:20 | NUR ---
FOLLOW UP WITH VIDEO SWALLOW STUDY RN CALLED CHERYL WHO WAS IN ICU AND VERIFIED IF PATIENT STILL NEEDED VIDEO SWALLOW STUDY, CHERYL STATED YES SHE WAS WAITING TO GET NOTIFIED THAT THERE WAS AN ORDER PUT IN. INFORMED CHERYL THAT ORDER WAS PUT IN YESTERDAY. CHERYL ASKED RN IF PATIENT WAS GETTING DISCHARGED TODAY. RN INFORMED CHERYL THAT PATIENT WILL POSSIBLY BE DISCHARGED TODAY. CHERYL STATED SHE WILL NOT BE ABLE TO GET IT DONE UNTIL SUNDAY BUT IT DOES NOT NEED TO HOLD UP DISCHARGE. CHERYL RECOMMENDS THAT PATIENT HAS VIDEO STUDY OUTPATIENT. RN ASKED IF PATIENT WAS SAFE TO DISCHARGE WITHOUT VIDEO SWALLOW STUDY. CHERYL STATED YES AND SHE JUST RECOMMENDS PATIENT GET TEST DONE OUTPATIENT.
--- NOTE | 2018-08-02 15:25 | NUR ---
S.T. SPOKE W/ LINDA CHARLES RE: VFSS ORDER. VFSS WAS ORDERED YESTERDAY AFTERNOON, BUT DIRECTORY CLERK WAS NEVER NOTIFIED. UNABLE TO SCHEDULE W/ RADIOLOGY AT THIS TIME FOR VFSS TODAY, AND PT IS BEING DISCHARGED. SUGGESTED TO ARACELI TO WRITE F/U VFSS WITH OTHER DISCHARGE ORDERS. VFSS TO BE DONE ON AN OUTPATIENT BASIS. ARACELI CONCURRED.
--- NOTE | 2018-08-02 15:25 | NUR ---
DR. AC NOTIFIED DR. AC THAT PATIENT WAS ACCEPTED AT [facility] BUT THEY NEED THE PHYSICIAN'S REPORT TO BE SIGNED AND FAXED. RN ASKED DR. AC IF RN CAN FILL OUT APPROPRIATE SECTIONS AND FAX OVER TO HIM FOR SIGNATURE AND HE FAXES IT TO FACILITY. DR. AC STATED HE WILL COME IN TO HOSPITAL TO FILL OUT AND SIGN PAPERS.
--- NOTE | 2018-08-02 15:57 | NUR ---
DR. OSORIO AC IS HERE TO SIGN PAPER, INFORMED DR. AC THAT PATIENT DID NOT GET VIDEO SWALLOW AND IT IS RECOMMENDED FOR PATIENT TO HAVE OUTPATIENT BY CHERYL SPEECH THERAPIST. DR. AC SAID IT IS NOT NEEDED AT THIS TIME.
--- NOTE | 2018-08-02 16:05 | NUR ---
RN ROUNDS PATIENT RESTING IN BED WITH EYES CLOSED, BREATHING EVEN AND UNLABORED. WILL CONTINUE TO MONITOR.
[2018-08-02 16:14] VITALS: BP_SYST 120
--- NOTE | 2018-08-02 16:25 | NUR ---
RN ROUNDS NO SIGNS OF DISTRESS NOTED, WILL CONTINUE TO MONITOR.
--- NOTE | 2018-08-02 16:59 | NUR ---
DC PLANNING: HENRY SPOKE WITH CRISTIANA DEMPSEY ( DIRECTOR @ [facility] ) @ P AND ACCORDING TO CRISTIANA TRANSPORTATION HAS BEEN SETUP WITH [facility] @ P . REINFORCING STEEL MACHINE OPERATOR TIME IS AT 10AM. CM CONTACTED MOY REYES ( PATIENT'S POA) @ P AND INFORM REGARDING DC PLAN FOR TOMORROW MORNING. ACCORDING TO PAT, SHE IS AWARE OF THE TRANSPORTATION SETUP AND SHE WILL BE HERE TOMORROW MORNING AT 9:30AM. CM MADE PATIENT'S NURSE (ARACELI) AWARE.
--- NOTE | 2018-08-02 18:02 | NUR ---
PAGED PAGED MISSY MORENO AT [phone] SPOKE WITH BLUE.
--- NOTE | 2018-08-02 18:02 | NUR ---
D/C PLANNING INFORMATION TECHNOLOGY OFFICER NOTIFIED ME THAT PATIENT WILL BE PICKED UP TOMORROW AT 10:00 AM. PACKET NEEDS TO BE FAXED TO CRISTIANA THE LIABILITY ANALYST OF BOARD AND [facility] AT [phone], THE PACKET IS WAITING ON CXR RESULTS IN ORDER TO BE COMPLETE, WILL NOTIFY TRAM INSPECTOR NURSE TO FILL IN RESULT ONCE CXR RESULTS IN COMPLETED, ALREADY CALLED RADIOLOGY AND NOTIFIED THEM OF THE ORDER. PACKET WILL BE KEPT IN PATIENT'S BLUE FOLDER. PACKET HAS ALREADY BEEN SIGNED BY DR. AC. PAGED DR. AC TO NOTIFY HIM THAT PATIENT WILL NOT BE DISCHARGED UNTIL TOMORROW AT 10AM, AWAITING CALL BACK.
--- NOTE | 2018-08-02 18:08 | NUR ---
HENRY SPOKE WITH MOY REYES (POA OF THE PATIENT). SHE STATED THAT JOSH CALLED HER AND STATED THAT THE APPEAL WAS NOT APPROVED AND PATIENT NEEDS TO BE DISCHARGE BEFORE 12NOON TOMORROW . HENRY ATTEMPTED TO CONTACT JOSH @ [phone] TO CONFIRM APPEAL DECISION. HOWEVER, WAS NOT AVAILABLE. HENRY LEFT A VOICE MESSAGE WITH THE CASE NUMBER AND CALL BACK NUMBER.
--- NOTE | 2018-08-02 18:21 | NUR ---
DR. AC INFORMED THAT PATIENT WILL NOT BE LEAVING UNTIL TOMORROW.
--- NOTE | 2018-08-02 18:30 | NUR ---
CHANGE OF SHIFT.PT.PRESENTS QUIESCENT AFFECT;CALM.I HAVE TUNED THE TV PROGRAMMING TO BASKETBALL GAME;PT.APPRECIATED THE INTERVENTION.I HAVE PLACED THE BLANKETS UPON THE PT.PT.STATED; HE IS COLD.I HAVE ASSESSED THE PT FOR CLEANLINESS. GENERAL STATUS STABLE.RESPIRATORY STATUS STABLE,.UNLABORED.PT.REPOSITIONED. CALL LIGHT/TELEPHONE PLACED W/IN THE REACH OF THE PT.
--- NOTE | 2018-08-02 18:43 | NUR ---
CLOSING NOTE ENDORSED PATIENT TO LAND COMMISSIONER NURSE, ALL NEEDS MET. RN AWARE TO FAX PAPER WORK OVER TO CRISTIANA SOON CXR RESULT COME IN. PATIENT CURRENTLY SITTING UP IN BED, NO SIGNS OF DISTRESS NOTED.
[2018-08-02 19:00] VITALS: BP_SYST 125
--- NOTE | 2018-08-02 19:00 | NUR ---
PT.ASSESSED.V/S ASSESSED;VALUES W/IN NORMAL LIMITS.I HAVE ASSESSED THE PT.FOR CLEANLINESS.PT.REPOSITIONED.I HAVE APPRISED THE PT.THAT SNACKS/ BEVERAGES ARE. AVAILABLE W/IN THE SHIFT;NO REQUESTS POSITIED PER THE PT.@THIS HOUR. GENERAL STATUS STABLE.RESPIRATORY STATUS STABLE.CALL LIGHT/TELEPHONE PLACED W/IN THE REACH OF THE PT.
[2018-08-02 20:00] VITALS: BP_SYST 125
--- NOTE | 2018-08-02 20:00 | NUR ---
pt.assessed.pt.assessed for cleanliness.pt.repositioned.general status stable.respiratory status stable. r/t has administered the hhn-treatments.i have held thew mask;pt.has removed the mask. general status stable.respiratory status stable.i have set the suction supplies re;pt.presents secretions.
[2018-08-02] MEDS: QUEtiapine FUMARATE 25 MG TABLET PO SCH (20:31)
--- NOTE | 2018-08-02 21:00 | NUR ---
2100p medications administered.i have crushed the medications and mixed w/pudding per the pt's requests.pt.repositioned.assessed for cleanliness.
--- NOTE | 2018-08-02 21:45 | NUR ---
pt.has submitted to cxr;p/t transfer:08/03/18. pt.presents agitated status.pt.presents soiled lined. i have cleansed the pt.changed the linen.
--- NOTE | 2018-08-02 22:00 | NUR ---
pt.assessed.pt.remains and presents agitated status.i have administered haldol;5mg im. pt.repositioned.call light/telephone paced w/in the reach of the pt.
--- NOTE | 2018-08-03 | NUR ---
pt.assessed.v/s assessed;values w/in normal limits.pt.assessed for cleanliness.pt.repositioned. o2-sat%=96%@room air.general status stable.respiratory status stable.pt.presents quiescent affect;calm,somnolent.call light/telephone placed w/in the reach of the pt.
--- NOTE | 2018-08-03 02:00 | NUR ---
pt.assessed.pt.assessed for cleanliness.pt.repositioned.pt.presents quiescent affect;calm, somnolent.general status stable.respiratory status stable.blankets,pillows re applied.call light/telephone placed w/in the rech of the pt.
--- NOTE | 2018-08-03 04:00 | NUR ---
pt.assessed.pt.presents quiescent affect;calm,somnolent.pt.assessed for cleanliness.pt.repositioned. general status stable.respiratory status stable.per flacc;pain mgx;pt.absent facial grimaces/body posturing.call light/telephone placed w/in the reach of the pt.
[2018-08-03] MEDS: ALBUTEROL SULFATE 0.083% 2.5 MG/3 ML VIAL.NEB INH SCH ×2 (04:26→08:13)
[2018-08-03] MEDS: IPRATROPIUM BROM 0.5 MG/2.5 ML VIAL.NEB (ATROVENT) INH SCH ×2 (04:27→08:13)
[2018-08-03] MEDS: CARBIDOPA/LEVODOPA 25/250 MG TABLET PO SCH ×2 (05:32→09:07)
[2018-08-03] MEDS: HALOPERIDOL LACTATE 5 MG/ML VIAL IM PRN (06:09)
--- NOTE | 2018-08-03 06:30 | NUR ---
pt.assessed.pt.assessed for cleanliness.pt.cleaned.pt.presents restless/agitated status.i have administered haldol;5mg im. pt.repositioned.general status stable.respiratory status stable.i have attended to the transfer paper work.i have printed the transfer packet.i have printed the dnr;polst form. have presented the medication;indication sheet w/in the paper work.call light/telephone placed w/in the reach of the pt.
--- NOTE | 2018-08-03 06:37 | NUR ---
Opening Note Report received from Carlos HAYS shift nurse. Patient is currently sleeping in bed. Patient is known to have periods of aggressive behavior. Patient will be going to [facility] today. Pick is scheduled for 1000. Fall and aspiration precautions are in place. Patient is disoriented, however, responds to light stimuli. Will continue to monitor.
[2018-08-03 08:00] VITALS: BP_SYST 94
--- NOTE | 2018-08-03 08:42 | NUR ---
Rounds Patient ambulated with PT and a walker.
[2018-08-03] MEDS: FINASTERIDE 5 MG TABLET (PROSCAR) PO SCH (09:07)
[2018-08-03] MEDS: COMTAN 200 MG TAB PO SCH (09:07)
[2018-08-03] MEDS: DOCUSATE SODIUM 100 MG CAPSULE PO SCH (09:07)
[2018-08-03] MEDS: QUEtiapine FUMARATE 25 MG TABLET PO SCH (09:07)
[2018-08-03] MEDS: CYANOCOBALAMIN 1000 mCg TABLET PO SCH (09:08)
[2018-08-03 09:25] VITALS: BP_SYST 94
--- NOTE | 2018-08-03 09:40 | NUR ---
RN Note Per Dr. Charity MD recommended sending the patient to [facility]. However, the patient's family refused. And Pat Walt, the patient's DPOA arranged housing at [facility]. Dr. Hwang was made aware of this yesterday by Andree MCKEON.
--- NOTE | 2018-08-03 10:23 | NUR ---
Transition of Care Note Patient given medication reconciliation form and D/C instructions. Exit Care provided. DPOA verbalized understanding. MD discussed with patient the results and treatment provided. Medical van transportation is here to strip picker the patient. Patient in stable condition, ID band removed. IV catheter removed, intact and dressing applied, no active bleeding. Patient and DPOA educated on pain management. All belongings sent with patient. Patient left the unit in stable condition.
--- NOTE | 2018-08-06 11:35 | NUR ---
CASE MANAGEMENT: CM RECEIVED A CALL FROM JARETT AT [facility] REGARDING THE APPEAL. PER JARETT, APPEAL WAS DENIED AND LIABILITY START NOON OF 08/03/2018.
--- NOTE | 2018-08-09 13:30 | NUR ---
Discharge Follow Up Phone Call Senior Game Developer phoned the number listed for patient on 08/07/18, , and left a voicemail message. BALLOON ARTIST noted that the phone number is for [facility], where patient no longer resides. Patient now lives at [facility]. BALLOON ARTIST phoned Gianluca, , the person to notify at the banner and left a voicemail message. Gianluca returned the call. Patient is doing okay now. He was originally aggressive, but is better. He receives his follow up care in the home with home visits. He stated that best contact number and address for patient is his POA: pat sales- [phone], [id number] [facility] [id number]. BALLOON ARTIST notified Admitting. No other questions or concerns.
== END 2018-08-03 10:10 | disposition home or self-care (01) | DRG 71 ==
LOC: SED 20:47 → STU 23:48 → SMU 07-30 10:14
PROVIDERS: ADMIT Internal Medicine Hospice and Palliative Medicine; ATTEND Internal Medicine Hospice and Palliative Medicine
DX: G93.41 Metabolic encephalopathy (principal); F02.81 Dementia in other diseases classified elsewhere, unspecified severity, with behavioral disturbance; R45.1 Restlessness and agitation; I10 Essential (primary) hypertension; E11.9 Type 2 diabetes mellitus without complications; J44.9 Chronic obstructive pulmonary disease, unspecified; G20 Parkinson's disease; F02.80 Dementia in other diseases classified elsewhere, unspecified severity, without behavioral disturbance, psychotic disturbance, mood disturbance, and anxiety; F29 Unspecified psychosis not due to a substance or known physiological condition; Z78.1 Physical restraint status; Z88.2 Allergy status to sulfonamides; Z88.8 Allergy status to other drugs, medicaments and biological substances; Z79.899 Other long term (current) drug therapy; Z95.0 Presence of cardiac pacemaker
CPT/HCPCS: 36415; 70450-TC; 71045; 80053; 81000-TC; 83605; 83880; 84484; 85025; 87040-TC; 87081; 87086; 92610-GN; 93005; 94640; 94760; 95816; 96372; 96375; 97110-GP; 97116-GP; 97530-GP; 99285; G0378; J0696; J1200; J1630; J2060; J7042; J7613